=== PATIENT | male | born 1990 | race Caucasian/White ===

== ENCOUNTER 2023-04-13 19:54 | Emergency (ER) | payer MEDICAID, SELFPAY ==
[2023-04-13] VITALS (10 sets, daily range): BP systolic 114–162; BP diastolic 66–94; PULSE 92–98; RESP 6–24; TEMP 36.9; O2SAT 96–99; BMI 42.0
--- NOTE | 2023-04-13 20:03 | ED.CHESTPAI1 ---
Documented by User: MEL Doty 04/13/23 21:24 HPI - Chest Pain General Chief Complaint: Chest Pain Stated Complaint: CHEST PAIN Time Seen by Provider: 04/13/23 19:59 History of Present Illness HPI narrative: patient is a 32-year-old male presents to the emergency department for the evaluation of chest pain over the last 40-45 minutes. He states he was at a family cookout when he developed pain in the anterior chest with radiation to the left anterior chest. He reports minimal shortness of breath but has had no recent illness, fevers, cough, congestion. He denies abdominal pain, nausea, vomiting, diarrhea. He denies peripheral edema. He smokes proximally fifteen cigarettes daily. He states he was concerned because he has a family history of coronary artery disease. He has no known heart or lung problems. He takes no medications daily. Related Data Allergies Allergy/AdvReac Type Severity Reaction Status Date / Time No Known Drug Allergies Allergy Verified 04/13/23 20:07 Review of Systems ROS Constitutional Denies: fever or chills Ears, nose, mouth, and throat Denies: throat pain or neck pain Cardiovascular Reports: chest pain; Denies: palpitations Respiratory Reports: shortness of breath; Denies: cough Gastrointestinal Denies: nausea or vomiting Musculoskeletal Denies: back pain Integumentary/Breast Denies: rash PFSH PFSH Social History Smoking status: Current every day smoker Exam Narrative Exam Narrative: Gen.: Awake, alert, in no distress Head: Normocephalic, atraumatic ENT: Moist mucous membranes Respiratory: No respiratory distress, lungs clear bilaterally Cardio: Regular rate and rhythm Gastrointestinal: Abdomen is soft, nondistended and nontender to palpation Extremities: Moves extremities equally, no peripheral edema Psych: Normal mood and affect Neuro: No focal neuro deficit Skin: Warm, dry, intact Constitutional Vital Signs - 24 hr 04/13/23 19:59 04/13/23 20:11 04/13/23 20:00 Temperature 98.5 F Pulse Rate Pulse Rate [Monitor] 95 H Respiratory Rate 18 Blood Pressure Blood Pressure [Left Arm] 162/94 H Pulse Oximetry 97 97 99 Oxygen Delivery Method Room Air Room Air 04/13/23 20:03 04/13/23 20:04 04/13/23 20:16 Temperature Pulse Rate 98 H 93 H 93 H Pulse Rate [Monitor] Respiratory Rate 6 L 15 17 Blood Pressure 162/94 H 148/90 H Blood Pressure [Left Arm] Pulse Oximetry 96 97 97 Oxygen Delivery Method 04/13/23 20:16 04/13/23 20:41 04/13/23 20:42 Temperature Pulse Rate 92 H 92 H Pulse Rate [Monitor] Respiratory Rate 11 L 15 Blood Pressure 148/90 H Blood Pressure [Left Arm] Pulse Oximetry Oxygen Delivery Method 04/13/23 20:47 04/13/23 21:02 04/13/23 21:02 Temperature Pulse Rate 94 H 96 H 92 H Pulse Rate [Monitor] Respiratory Rate 17 24 19 Blood Pressure 130/80 H 114/66 114/66 Blood Pressure [Left Arm] Pulse Oximetry Oxygen Delivery Method Course Vital Signs Vital signs: Vital Signs Temperature 98.5 F 04/13/23 19:59 Pulse Rate 95 H 04/13/23 19:59 Respiratory Rate 18 04/13/23 19:59 Blood Pressure 162/94 H 04/13/23 19:59 Pulse Oximetry 97 04/13/23 19:59 Oxygen Delivery Method Room Air 04/13/23 19:59 Temperature 98.5 F 04/13/23 19:59 Pulse Rate 92 H 04/13/23 21:02 Respiratory Rate 19 04/13/23 21:02 Blood Pressure 114/66 04/13/23 21:02 Pulse Oximetry 97 04/13/23 20:16 Oxygen Delivery Method Room Air 04/13/23 20:11 MDM - Chest Pain MDM Narrative Medical decision making narrative: patient with a heart score of two for risk factors of obesity, smoking, family history. His vital signs are within normal limits in the Emergency Room, EKG is unremarkable. Patient rested comfortably throughout his stay in the Emergency Room, he was given aspirin but did not require any additional medications for pain or nausea. Chest x-ray, d-dimer, troponin within normal limits and the patient is discharged home to follow-up with PCP. Return to the emergency department if symptoms change or worsen. Medical Records Data Attestation: I reviewed the patient's medical records. Lab Data Attestation: I reviewed the patient's lab results. Labs: Lab Results 04/13/23 Range/Units 20:05 WBC 7.9 (4.0-11.0) 10^3/uL RBC 5.50 (4.70-6.10) 10^6/uL Hgb 14.9 (14.0-18.0) g/dL Hct 46.0 (42.0-54.0) % MCV 83.6 (80.0-94.0) fL MCH 27.1 (25.9-34.0) pg MCHC 32.4 (29.9-35.2) g/dL RDW 13.1 (11.0-15.0) % Plt Count 277 (150-450) 10^3/uL MPV 10.3 (9.5-13.5) fL Neut % (Auto) 73.8 (43.0-75.0) % Lymph % (Auto) 15.9 L (20.5-60.0) % [place] % (Auto) 7.5 (1.7-12.0) % Eos % (Auto) 1.7 (0.9-7.0) % Baso % (Auto) 0.3 (0.2-2.0) % Neut # (Auto) 5.8 (1.4-6.5) 10^3/uL Lymph # (Auto) 1.3 (1.2-3.8) 10^3/uL [place] # (Auto) 0.6 (0.3-0.8) 10^3/uL Eos # (Auto) 0.1 (0.0-0.7) 10^3/uL Baso # (Auto) 0.0 (0.0-0.1) 10^3/uL Abs Immat Gran (auto) 0.06 H (0.00-0.03) 10^3/uL Imm/Tot Granulo (auto) 0.8 H (0.0-0.5) % PT 10.2 (9.0-11.6) sec INR 0.96 APTT 28.2 (22.3-36.2) sec D-Dimer <0.19 (<=0.59) mg/L FEU Sodium 139 (136-145) mmol/L Potassium 4.3 (3.5-5.1) mmol/L Chloride 104 (98-107) mmol/L Carbon Dioxide 25.3 (21.0-32.0) mmol/L Anion Gap 14.0 BUN 14.0 (7.0-18.0) mg/dL Creatinine 0.96 (0.70-1.30) mg/dL Est GFR ( Amer) >60 (>=60) Est GFR (Non-Af Amer) >60 (>=60) BUN/Creatinine Ratio 14.6 Glucose 104 (74-106) mg/dL Calcium 9.2 (8.5-10.1) mg/dL Total Bilirubin 0.3 (0.2-1.0) mg/dL AST 20 (15-37) U/L ALT 54 (16-63) U/L Alkaline Phosphatase 74 (46-116) U/L Troponin I High Sens <4.0 L (4.0-76.1) pg/mL Total Protein 8.0 (6.4-8.2) g/dL Albumin 4.0 (3.4-5.0) g/dL Globulin 4.0 g/dL Albumin/Globulin Ratio 1.0 Imaging Data Chest x-ray: Attestation: I have reviewed the pertinent imaging results. Radiologist's impression: Procedure: XR chest 1V EXAMINATION: XR chest 1V HISTORY: Chest pain COMPARISON: None. TECHNIQUE: Portable chest FINDINGS: The lung parenchyma is free of consolidation or infiltrate. No pneumothorax or pleural effusion. The cardiac, mediastinal and hilar contours are normal. The visualized osseous structures exhibit no gross abnormality. IMPRESSION: No acute cardiopulmonary abnormality. Electronically authenticated by: ARANZA MONROE Date: 04/13/2023 21:12 ECG Data Attestation: I personally reviewed and interpreted this ECG as follows: (normal sinus rhythm at a rate of ninety-three, no acute ST elevation or ectopy. EKG reviewed by attending physician) Heart Score History: Slightly/Non-Suspicious ECG: Normal Age: <45 years Risk Factors: >3 Risk Factors/ HX of CAD:2 Troponin: <Normal Limit Total Heart Score Recommendations & Risks:: 2 Discharge Plan Discharge Chief Complaint: Chest Pain Clinical Impression: Chest pain Patient Disposition: Home, Self-Care Time of Disposition Decision: 21:21 Condition: Good Instructions: Chest Pain (ED) Stand Alone Forms: Portal Instructions Referrals: Juliette Reaves MD [Primary Care Provider] - 1 week Discharge Date/Time: 04/13/23 21:31 Documented by User: Ko Pedro MD 04/14/23 06:48 HPI - Chest Pain General Chief Complaint: Chest Pain Stated Complaint: CHEST PAIN Time Seen by Provider: 04/13/23 19:59 Related Data Allergies Allergy/AdvReac Type Severity Reaction Status Date / Time No Known Drug Allergies Allergy Verified 04/13/23 20:07 PFSH PFSH Social History Smoking status: Current every day smoker Exam Constitutional Vital Signs - 24 hr 04/13/23 19:59 04/13/23 20:11 04/13/23 20:00 Temperature 98.5 F Pulse Rate Pulse Rate [Monitor] 95 H Respiratory Rate 18 Blood Pressure Blood Pressure [Left Arm] 162/94 H Pulse Oximetry 97 97 99 Oxygen Delivery Method Room Air Room Air 04/13/23 20:03 04/13/23 20:04 04/13/23 20:16 Temperature Pulse Rate 98 H 93 H 93 H Pulse Rate [Monitor] Respiratory Rate 6 L 15 17 Blood Pressure 162/94 H 148/90 H Blood Pressure [Left Arm] Pulse Oximetry 96 97 97 Oxygen Delivery Method 04/13/23 20:16 04/13/23 20:41 04/13/23 20:42 Temperature Pulse Rate 92 H 92 H Pulse Rate [Monitor] Respiratory Rate 11 L 15 Blood Pressure 148/90 H Blood Pressure [Left Arm] Pulse Oximetry Oxygen Delivery Method 04/13/23 20:47 04/13/23 21:02 04/13/23 21:02 Temperature Pulse Rate 94 H 96 H 92 H Pulse Rate [Monitor] Respiratory Rate 17 24 19 Blood Pressure 130/80 H 114/66 114/66 Blood Pressure [Left Arm] Pulse Oximetry Oxygen Delivery Method Course Vital Signs Vital signs: Vital Signs Temperature 98.5 F 04/13/23 19:59 Pulse Rate 95 H 04/13/23 19:59 Respiratory Rate 18 04/13/23 19:59 Blood Pressure 162/94 H 04/13/23 19:59 Pulse Oximetry 97 04/13/23 19:59 Oxygen Delivery Method Room Air 04/13/23 19:59 Temperature 98.5 F 04/13/23 19:59 Pulse Rate 92 H 04/13/23 21:02 Respiratory Rate 19 04/13/23 21:02 Blood Pressure 114/66 04/13/23 21:02 Pulse Oximetry 97 04/13/23 20:16 Oxygen Delivery Method Room Air 04/13/23 20:11 MDM - Chest Pain Lab Data Labs: Lab Results 04/13/23 Range/Units 20:05 WBC 7.9 (4.0-11.0) 10^3/uL RBC 5.50 (4.70-6.10) 10^6/uL Hgb 14.9 (14.0-18.0) g/dL Hct 46.0 (42.0-54.0) % MCV 83.6 (80.0-94.0) fL MCH 27.1 (25.9-34.0) pg MCHC 32.4 (29.9-35.2) g/dL RDW 13.1 (11.0-15.0) % Plt Count 277 (150-450) 10^3/uL MPV 10.3 (9.5-13.5) fL Neut % (Auto) 73.8 (43.0-75.0) % Lymph % (Auto) 15.9 L (20.5-60.0) % [place] % (Auto) 7.5 (1.7-12.0) % Eos % (Auto) 1.7 (0.9-7.0) % Baso % (Auto) 0.3 (0.2-2.0) % Neut # (Auto) 5.8 (1.4-6.5) 10^3/uL Lymph # (Auto) 1.3 (1.2-3.8) 10^3/uL [place] # (Auto) 0.6 (0.3-0.8) 10^3/uL Eos # (Auto) 0.1 (0.0-0.7) 10^3/uL Baso # (Auto) 0.0 (0.0-0.1) 10^3/uL Abs Immat Gran (auto) 0.06 H (0.00-0.03) 10^3/uL Imm/Tot Granulo (auto) 0.8 H (0.0-0.5) % PT 10.2 (9.0-11.6) sec INR 0.96 APTT 28.2 (22.3-36.2) sec D-Dimer <0.19 (<=0.59) mg/L FEU Sodium 139 (136-145) mmol/L Potassium 4.3 (3.5-5.1) mmol/L Chloride 104 (98-107) mmol/L Carbon Dioxide 25.3 (21.0-32.0) mmol/L Anion Gap 14.0 BUN 14.0 (7.0-18.0) mg/dL Creatinine 0.96 (0.70-1.30) mg/dL Est GFR ( Amer) >60 (>=60) Est GFR (Non-Af Amer) >60 (>=60) BUN/Creatinine Ratio 14.6 Glucose 104 (74-106) mg/dL Calcium 9.2 (8.5-10.1) mg/dL Total Bilirubin 0.3 (0.2-1.0) mg/dL AST 20 (15-37) U/L ALT 54 (16-63) U/L Alkaline Phosphatase 74 (46-116) U/L Troponin I High Sens <4.0 L (4.0-76.1) pg/mL Total Protein 8.0 (6.4-8.2) g/dL Albumin 4.0 (3.4-5.0) g/dL Globulin 4.0 g/dL Albumin/Globulin Ratio 1.0 Heart Score Total Heart Score Recommendations & Risks:: 2 Discharge Plan Discharge Chief Complaint: Chest Pain Clinical Impression: Chest pain Patient Disposition: Home, Self-Care Time of Disposition Decision: 21:21 Condition: Good Instructions: Chest Pain (ED) Stand Alone Forms: Portal Instructions Referrals: Juliette Reaves MD [Primary Care Provider] - 1 week Discharge Date/Time: 04/13/23 21:31
--- NOTE | 2023-04-13 20:04 | ECG_ITS ---
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
[2023-04-13 20:12] LABS: Basophils Percent Auto 0.3 % (0.2-2.0); Eosinophils Absolute Auto 0.1 10^3/uL (0.0-0.7); Eosinophils Percent Auto 1.7 % (0.9-7.0); Hemoglobin 14.9 g/dL (14.0-18.0); Immature Granulocytes Abs Auto 0.06 10^3/uL (0.00-0.03); Immature Granulocytes Pct Auto 0.8 % (0.0-0.5); Lymphocytes Absolute Auto 1.3 10^3/uL (1.2-3.8); Lymphocytes Percent Auto 15.9 % (20.5-60.0); Mean Corpuscular HGB Conc 32.4 g/dL (29.9-35.2); Mean Corpuscular Hemoglobin 27.1 pg (25.9-34.0); Mean Corpuscular Volume 83.6 fL (80.0-94.0); Mean Platelet Volume 10.3 fL (9.5-13.5); Monocytes Absolute Auto 0.6 10^3/uL (0.3-0.8); Monocytes Percent Auto 7.5 % (1.7-12.0); Neutrophils Absolute Auto 5.8 10^3/uL (1.4-6.5); Neutrophils Percent Auto 73.8 % (43.0-75.0); Platelet Count 277 10^3/uL (150-450); Red Cell Distribution Width 13.1 % (11.0-15.0); White Blood Count 7.9 10^3/uL (4.0-11.0)
[2023-04-13 20:28] LABS: INR 0.96; Partial Thromboplastin Time 28.2 sec (22.3-36.2); Prothrombin Time 10.2 sec (9.0-11.6)
[2023-04-13 20:30] LABS: Alanine Aminotransferase 54 U/L (16-63); Alkaline Phosphatase 74 U/L (46-116); Aspartate Amino Transferase 20 U/L (15-37); BUN Creatinine Ratio 14.6; Bilirubin Total 0.3 mg/dL (0.2-1.0); Calcium 9.2 mg/dL (8.5-10.1); Carbon Dioxide 25.3 mmol/L (21.0-32.0); Chloride 104 mmol/L (98-107); Estimated GFR (African America >60 (>=60); Estimated GFR (Non-African Ame >60 (>=60); Glucose 104 mg/dL (74-106); Potassium 4.3 mmol/L (3.5-5.1); Sodium 139 mmol/L (136-145); Troponin I High Sensitivity <4.0 pg/mL (4.0-76.1)
[2023-04-13] MEDS: ASPIRIN 81 MG TAB.CHEW PO (20:42)
[2023-04-13 20:47] LABS: D Dimer <0.19 mg/L FEU (<=0.59)
--- NOTE | 2023-04-13 20:48 | XR_ITS ---
[place] [id number] Patient Name: SORAIDA RAPHAEL MRN: [id number] date: 1990 Sex: M Assigned Patient Location: ER Current Patient Location: ER Accession/Order Number: [id number] Exam Date: 04/13/2023 20:50 Report Date: 04/13/2023 21:12 At the request of: BECKY RICHARDS Procedure: XR chest 1V EXAMINATION: XR chest 1V HISTORY: Chest pain COMPARISON: None. TECHNIQUE: Portable chest FINDINGS: The lung parenchyma is free of consolidation or infiltrate. No pneumothorax or pleural effusion. The cardiac, mediastinal and hilar contours are normal. The visualized osseous structures exhibit no gross abnormality. IMPRESSION: No acute cardiopulmonary abnormality. Electronically authenticated by: ARANZA MONROE Date: 04/13/2023 21:12
== END 2023-04-13 21:31 | disposition home or self-care (01) ==
PROVIDERS: Physician Assistant; Emergency Provider Internal Medicine; PCP Family Medicine
DX: R07.9 Chest pain, unspecified (principal); F17.210 Nicotine dependence, cigarettes, uncomplicated; Z82.49 Family history of ischemic heart disease and other diseases of the circulatory system
CPT/HCPCS: 36415; 71045; 80053; 84484; 85025; 85378; 85610; 85730; 93005; 99285

== ENCOUNTER 2023-05-13 19:28 | Emergency (ER) | payer MEDICAID, SELFPAY ==
[2023-05-13] VITALS (20 sets, daily range): BP systolic 106–132; BP diastolic 69–93; PULSE 72–80; RESP 13–20; TEMP 36.6; O2SAT 96–99; BMI 40.7
--- NOTE | 2023-05-13 20:05 | ECG_ITS ---
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
--- NOTE | 2023-05-13 20:19 | XR_ITS ---
The [address] [address] Patient Name: SORAIDA RAPHAEL MRN: [id number] date: 1990 Sex: M Assigned Patient Location: ER Current Patient Location: ER Accession/Order Number: [id number] Exam Date: 05/13/2023 20:52 Report Date: 05/13/2023 21:14 At the request of: BECKY RICHARDS Procedure: XR chest 1V EXAM: XR chest 1V HISTORY: Dizziness COMPARISON: 04/13/2023 TECHNIQUE: AP portable study FINDINGS: The cardiovascular silhouette is normal. Lung gottlieb are well-expanded and clear. Pleural spaces are clear. The bony structures are unremarkable. XR/XR chest 1V IMPRESSION: No evidence for acute cardiopulmonary disease. Electronically authenticated by: Katy TRAN Date: 05/13/2023 21:14
--- NOTE | 2023-05-13 20:19 | CT_ITS ---
The [address] [address] Patient Name: SORAIDA RAPHAEL MRN: [id number] date: 1990 Sex: M Assigned Patient Location: ER Current Patient Location: [facility] Accession/Order Number: [id number] Exam Date: 05/13/2023 20:52 Report Date: 05/13/2023 21:24 At the request of: BECKY RICHARDS Procedure: CT head/brain wo con CT head/brain wo con, 05/13/2023 8:52 PM EDT INDICATION: Dizziness COMPARISON: None. TECHNIQUE: Axial CT images of the brain from skull base to vertex, including portions of the face and sinuses, were obtained without contrast. Multiplanar reformatted images were generated and reviewed as needed. Dose reduction techniques were achieved by using automated exposure control and/or adjustment of mA and/or kV according to patient size and/or use of iterative reconstruction technique. FINDINGS: CEREBRUM: No edema, hemorrhage, mass, acute infarction, or inappropriate atrophy. CEREBELLUM: No edema, hemorrhage, mass, acute infarction, or inappropriate atrophy. BRAINSTEM: No acute infarct, hemorrhage or gross structural abnormality. CSF SPACES: Ventricles, cisterns, and sulci are appropriate for age. No hydrocephalus, subarachnoid hemorrhage, or mass. SKULL: No mass or other significant visible lesion. SINUSES: Limited views demonstrate no significant mucosal thickening or fluid. ORBITS: Limited views are unremarkable. OTHER: None. CT/CT head/brain wo con IMPRESSION: No acute intracranial abnormality is identified. Electronically authenticated by: Katy TRAN Date: 05/13/2023 21:24
[2023-05-13 20:33] LABS: Basophils Percent Auto 0.3 % (0.2-2.0); Eosinophils Absolute Auto 0.2 10^3/uL (0.0-0.7); Eosinophils Percent Auto 2.7 % (0.9-7.0); Hematocrit 46.6 % (42.0-54.0); Hemoglobin 14.8 g/dL (14.0-18.0); Immature Granulocytes Abs Auto 0.08 10^3/uL (0.00-0.03); Immature Granulocytes Pct Auto 1.4 % (0.0-0.5); Lymphocytes Absolute Auto 1.2 10^3/uL (1.2-3.8); Lymphocytes Percent Auto 20.1 % (20.5-60.0); Mean Corpuscular HGB Conc 31.8 g/dL (29.9-35.2); Mean Corpuscular Hemoglobin 26.5 pg (25.9-34.0); Mean Corpuscular Volume 83.5 fL (80.0-94.0); Mean Platelet Volume 10.5 fL (9.5-13.5); Monocytes Absolute Auto 0.4 10^3/uL (0.3-0.8); Monocytes Percent Auto 7.2 % (1.7-12.0); Neutrophils Percent Auto 68.3 % (43.0-75.0); Platelet Count 256 10^3/uL (150-450); Red Blood Count 5.58 10^6/uL (4.70-6.10); Red Cell Distribution Width 12.8 % (11.0-15.0); White Blood Count 5.9 10^3/uL (4.0-11.0)
[2023-05-13] MEDS: MECLIZINE HCL 12.5 MG TABLET 25 MG PO (20:39)
[2023-05-13] MEDS: 0.9 % SODIUM CHLORIDE 1,000 ML 1000 ML IV ×2 (20:39→22:59)
[2023-05-13 20:46] LABS: INR 0.98; Partial Thromboplastin Time 29.1 sec (22.3-36.2); Prothrombin Time 10.4 sec (9.0-11.6)
[2023-05-13] MEDS: ONDANSETRON PF 4 MG/2 ML VIAL IV (20:46)
[2023-05-13 20:50] LABS: Alanine Aminotransferase 52 U/L (16-63); Albumin Globulin Ratio 1.1; Alkaline Phosphatase 70 U/L (46-116); Anion Gap 11.7; Aspartate Amino Transferase 22 U/L (15-37); BUN Creatinine Ratio 13.8; Bilirubin Total 0.5 mg/dL (0.2-1.0); Calcium 8.9 mg/dL (8.5-10.1); Carbon Dioxide 27.6 mmol/L (21.0-32.0); Chloride 103 mmol/L (98-107); Estimated GFR (African America >60 (>=60); Estimated GFR (Non-African Ame >60 (>=60); Globulin 3.7 g/dL; Glucose 126 mg/dL (74-106); Potassium 4.3 mmol/L (3.5-5.1); Sodium 138 mmol/L (136-145); Total Protein 7.7 g/dL (6.4-8.2)
--- NOTE | 2023-05-13 21:16 | ED_ITS ---
Documented by User: MEL Doty 05/13/23 22:51 HPI - Dizziness General Chief Complaint: Dizziness Stated Complaint: DIZZINESS, HYPERTENSION Time Seen by Provider: 05/13/23 20:13 Source: patient Mode of arrival: walk-in History of Present Illness HPI Narrative: patient is a 32-year-old male who presents to the emergency department for the evaluation of dizziness that began this afternoon. He states he stood up and felt very unbalanced. He denies any sensation of spinning. No syncope. He denies headache, visual changes, peripheral paresthesias. No speech changes, chest pain, shortness of breath. He is regular smoker. No medications taken prior to arrival. He denies any fevers or upper respiratory symptoms. Related Data Previous Rx's Medication Instructions Recorded diazepam 5 mg tablet (Valium) 5 mg PO TID PRN dizziness #10 tabs 05/13/23 promethazine 25 mg tablet 25 mg PO Q6H PRN nausea and 05/13/23 vomiting #12 tabs Allergies Allergy/AdvReac Type Severity Reaction Status Date / Time No Known Drug Allergies Allergy Verified 04/13/23 20:07 Review of Systems ROS Constitutional Denies: fever or chills Eyes Denies: change in vision Ears, nose, mouth, and throat Denies: throat pain Cardiovascular Denies: chest pain Respiratory Denies: shortness of breath or cough Gastrointestinal Denies: nausea or vomiting Musculoskeletal Denies: back pain or neck pain Integumentary/Breast Denies: rash Neurological Denies: headache PFSH PFSH Social History Smoking status: Current every day smoker Exam Narrative Exam Narrative: Gen.: Awake, alert, in no distress Head: Normocephalic, atraumatic ENT: Moist mucous membranes Respiratory: No respiratory distress, lungs clear bilaterally Cardio: Regular rate and rhythm Extremities: Moves extremities equally, no injuries noted Psych: Normal mood and affect Neuro: No focal neuro deficit Skin: Warm, dry, intact Constitutional Vital Signs, click to edit/add: Last Vital Signs Temp 97.8 F 05/13/23 19:55 Pulse 72 05/13/23 20:40 Resp 14 05/13/23 20:40 BP 118/84 05/13/23 23:06 Pulse Ox 98 05/13/23 22:07 O2 Del Method Room Air 05/13/23 19:55 Course Vital Signs Vital signs: Vital Signs Temperature 97.8 F 05/13/23 19:55 Pulse Rate 79 05/13/23 19:55 Respiratory Rate 20 05/13/23 19:55 Blood Pressure 132/93 H 05/13/23 19:55 Pulse Oximetry 98 05/13/23 19:55 Oxygen Delivery Method Room Air 05/13/23 19:55 Temperature 97.8 F 05/13/23 19:55 Pulse Rate 72 05/13/23 20:40 Respiratory Rate 14 05/13/23 20:40 Blood Pressure 118/84 05/13/23 23:06 Pulse Oximetry 98 05/13/23 22:07 Oxygen Delivery Method Room Air 05/13/23 19:55 MDM - Dizziness MDM Narrative Medical decision making narrative: CT of the brain, chest x-ray, lab studies are unremarkable. Patient was treated with IV fluids, Antivert and Zofran. He reports still feeling dizzy. He was given IV Valium with no significant improvement and was given additional dose of IV Valium and a 2nd liter of fluid. 2250: patient was remedicated, case turned over to attending physician for reevaluation and disposition. Anticipate discharge home. Medical Records Attestation: I reviewed the patient's medical records. Lab Data Attestation: I reviewed the patient's lab results. Labs: Lab Results 05/13/23 05/13/23 Range/Units 20:15 20:43 WBC 5.9 (4.0-11.0) 10^3/uL RBC 5.58 (4.70-6.10) 10^6/uL Hgb 14.8 (14.0-18.0) g/dL Hct 46.6 (42.0-54.0) % MCV 83.5 (80.0-94.0) fL MCH 26.5 (25.9-34.0) pg MCHC 31.8 (29.9-35.2) g/dL RDW 12.8 (11.0-15.0) % Plt Count 256 (150-450) 10^3/uL MPV 10.5 (9.5-13.5) fL Neut % (Auto) 68.3 (43.0-75.0) % Lymph % (Auto) 20.1 L (20.5-60.0) % [place] % (Auto) 7.2 (1.7-12.0) % Eos % (Auto) 2.7 (0.9-7.0) % Baso % (Auto) 0.3 (0.2-2.0) % Neut # (Auto) 4.0 (1.4-6.5) 10^3/uL Lymph # (Auto) 1.2 (1.2-3.8) 10^3/uL [place] # (Auto) 0.4 (0.3-0.8) 10^3/uL Eos # (Auto) 0.2 (0.0-0.7) 10^3/uL Baso # (Auto) 0.0 (0.0-0.1) 10^3/uL Abs Immat Gran (auto) 0.08 H (0.00-0.03) 10^3/uL Imm/Tot Granulo (auto) 1.4 H (0.0-0.5) % PT 10.4 (9.0-11.6) sec INR 0.98 APTT 29.1 (22.3-36.2) sec Sodium 138 (136-145) mmol/L Potassium 4.3 (3.5-5.1) mmol/L Chloride 103 (98-107) mmol/L Carbon Dioxide 27.6 (21.0-32.0) mmol/L Anion Gap 11.7 BUN 15.0 (7.0-18.0) mg/dL Creatinine 1.09 (0.70-1.30) mg/dL Est GFR ( Amer) >60 (>=60) Est GFR (Non-Af Amer) >60 (>=60) BUN/Creatinine Ratio 13.8 Glucose 126 H (74-106) mg/dL Calcium 8.9 (8.5-10.1) mg/dL Total Bilirubin 0.5 (0.2-1.0) mg/dL AST 22 (15-37) U/L ALT 52 (16-63) U/L Alkaline Phosphatase 70 (46-116) U/L Troponin I High Sens 5.0 (4.0-76.1) pg/mL Total Protein 7.7 (6.4-8.2) g/dL Albumin 4.0 (3.4-5.0) g/dL Globulin 3.7 g/dL Albumin/Globulin Ratio 1.1 Urine Color Yellow (YELLOW) Urine Clarity Clear (CLEAR) Urine pH 6.0 (5.0-9.0) Ur Specific Forgan 1.020 (1.005-1.025) Urine Protein Trace (NEG/TRACE) mg/dL Urine Glucose (UA) Negative (NEGATIVE) mg/dL Urine Ketones Trace A (NEGATIVE) mg/dL Urine Occult Blood Negative (NEGATIVE) Urine Nitrite Negative (NEGATIVE) Urine Bilirubin Negative (NEGATIVE) Urine Urobilinogen 1.0 (0.2-1.0) EU/dL Ur Leukocyte Esterase Negative (NEGATIVE) Imaging Data CT scan - head: Attestation: I have reviewed the pertinent imaging results. Radiologist's impression: Procedure: CT head/brain wo con CT head/brain wo con, 05/13/2023 8:52 PM EDT INDICATION: Dizziness COMPARISON: None. TECHNIQUE: Axial CT images of the brain from skull base to vertex, including portions of the face and sinuses, were obtained without contrast. Multiplanar reformatted images were generated and reviewed as needed. Dose reduction techniques were achieved by using automated exposure control and/or adjustment of mA and/or kV according to patient size and/or use of iterative reconstruction technique. FINDINGS: CEREBRUM: No edema, hemorrhage, mass, acute infarction, or inappropriate atrophy. CEREBELLUM: No edema, hemorrhage, mass, acute infarction, or inappropriate atrophy. BRAINSTEM: No acute infarct, hemorrhage or gross structural abnormality. CSF SPACES: Ventricles, cisterns, and sulci are appropriate for age. No hydrocephalus, subarachnoid hemorrhage, or mass. SKULL: No mass or other significant visible lesion. SINUSES: Limited views demonstrate no significant mucosal thickening or fluid. ORBITS: Limited views are unremarkable. OTHER: None. IMPRESSION: No acute intracranial abnormality is identified. Electronically authenticated by: Katy TRAN Date: 05/13/2023 21:24 Chest x-ray: Attestation: I have reviewed the pertinent imaging results. Radiologist's impression: Procedure: XR chest 1V EXAM: XR chest 1V HISTORY: Dizziness COMPARISON: 04/13/2023 TECHNIQUE: AP portable study FINDINGS: The cardiovascular silhouette is normal. Lung gottlieb are well-expanded and clear. Pleural spaces are clear. The bony structures are unremarkable. IMPRESSION: No evidence for acute cardiopulmonary disease. Electronically authenticated by: Katy TRAN Date: 05/13/2023 21:14 ECG Data Attestation: I personally reviewed and interpreted this ECG as follows: (normal sinus rhythm at a rate of seventy-four, no acute ST elevation or ectopy. EKG reviewed by attending physician) Discharge Plan Discharge Chief Complaint: Dizziness Clinical Impression: Dizziness Patient Disposition: Home, Self-Care Time of Disposition Decision: 22:44 Condition: Good Mode of Transportation: Private Vehicle Prescriptions / Home Meds: New diazepam [Valium] 5 mg tablet 5 mg PO TID PRN (Reason: dizziness) Qty: 10 0RF Rx Instructions: DX: R42 promethazine 25 mg tablet 25 mg PO Q6H PRN (Reason: nausea and vomiting) Qty: 12 0RF Instructions: Dizziness (ED) Stand Alone Forms: Portal Instructions Referrals: Juliette Reaves MD [Primary Care Provider] - 1 week Discharge Date/Time: 05/14/23 00:37 Documented by User: Steph Lopez MD 05/14/23 03:16 HPI - Dizziness General Chief Complaint: Dizziness Stated Complaint: DIZZINESS, HYPERTENSION Time Seen by Provider: 05/13/23 20:13 Related Data Previous Rx's Medication Instructions Recorded diazepam 5 mg tablet (Valium) 5 mg PO TID PRN dizziness #10 tabs 05/13/23 promethazine 25 mg tablet 25 mg PO Q6H PRN nausea and 05/13/23 vomiting #12 tabs Allergies Allergy/AdvReac Type Severity Reaction Status Date / Time No Known Drug Allergies Allergy Verified 04/13/23 20:07 PFSH PFSH Social History Smoking status: Current every day smoker Exam Constitutional Vital Signs, click to edit/add: Last Vital Signs Temp 97.8 F 05/13/23 19:55 Pulse 72 05/13/23 20:40 Resp 14 05/13/23 20:40 BP 118/84 08/01/23 23:06 Pulse Ox 98 05/13/23 22:07 O2 Del Method Room Air 05/13/23 19:55 Course Vital Signs Vital signs: Vital Signs Temperature 97.8 F 05/13/23 19:55 Pulse Rate 79 05/13/23 19:55 Respiratory Rate 20 05/13/23 19:55 Blood Pressure 132/93 H 05/13/23 19:55 Pulse Oximetry 98 05/13/23 19:55 Oxygen Delivery Method Room Air 05/13/23 19:55 Temperature 97.8 F 05/13/23 19:55 Pulse Rate 72 05/13/23 20:40 Respiratory Rate 14 05/13/23 20:40 Blood Pressure 118/84 05/13/23 23:06 Pulse Oximetry 98 05/13/23 22:07 Oxygen Delivery Method Room Air 05/13/23 19:55 MDM - Dizziness MDM Narrative Medical decision making narrative: CT of the brain, chest x-ray, lab studies are unremarkable. Patient was treated with IV fluids, Antivert and Zofran. He reports still feeling dizzy. He was given IV Valium with no significant improvement and was given additional dose of IV Valium and a 2nd liter of fluid. 2250: patient was remedicated, case turned over to attending physician for reevaluation and disposition. Anticipate discharge home. Patient reevaluated. His symptoms improved after Valium. The patient is requesting discharge. 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 Patient was able to ambulate without any ataxia. Attending physician attestation I have seen and evaluated this patient. I have reviewed the mid-level provider?s documentation medical decision making and treatment plan. I agree with the mid- level provider?s assessment, and plan. Lab Data Labs: Lab Results 05/13/23 05/13/23 Range/Units 20:15 20:43 WBC 5.9 (4.0-11.0) 10^3/uL RBC 5.58 (4.70-6.10) 10^6/uL Hgb 14.8 (14.0-18.0) g/dL Hct 46.6 (42.0-54.0) % MCV 83.5 (80.0-94.0) fL MCH 26.5 (25.9-34.0) pg MCHC 31.8 (29.9-35.2) g/dL RDW 12.8 (11.0-15.0) % Plt Count 256 (150-450) 10^3/uL MPV 10.5 (9.5-13.5) fL Neut % (Auto) 68.3 (43.0-75.0) % Lymph % (Auto) 20.1 L (20.5-60.0) % [place] % (Auto) 7.2 (1.7-12.0) % Eos % (Auto) 2.7 (0.9-7.0) % Baso % (Auto) 0.3 (0.2-2.0) % Neut # (Auto) 4.0 (1.4-6.5) 10^3/uL Lymph # (Auto) 1.2 (1.2-3.8) 10^3/uL [place] # (Auto) 0.4 (0.3-0.8) 10^3/uL Eos # (Auto) 0.2 (0.0-0.7) 10^3/uL Baso # (Auto) 0.0 (0.0-0.1) 10^3/uL Abs Immat Gran (auto) 0.08 H (0.00-0.03) 10^3/uL Imm/Tot Granulo (auto) 1.4 H (0.0-0.5) % PT 10.4 (9.0-11.6) sec INR 0.98 APTT 29.1 (22.3-36.2) sec Sodium 138 (136-145) mmol/L Potassium 4.3 (3.5-5.1) mmol/L Chloride 103 (98-107) mmol/L Carbon Dioxide 27.6 (21.0-32.0) mmol/L Anion Gap 11.7 BUN 15.0 (7.0-18.0) mg/dL Creatinine 1.09 (0.70-1.30) mg/dL Est GFR ( Amer) >60 (>=60) Est GFR (Non-Af Amer) >60 (>=60) BUN/Creatinine Ratio 13.8 Glucose 126 H (74-106) mg/dL Calcium 8.9 (8.5-10.1) mg/dL Total Bilirubin 0.5 (0.2-1.0) mg/dL AST 22 (15-37) U/L ALT 52 (16-63) U/L Alkaline Phosphatase 70 (46-116) U/L Troponin I High Sens 5.0 (4.0-76.1) pg/mL Total Protein 7.7 (6.4-8.2) g/dL Albumin 4.0 (3.4-5.0) g/dL Globulin 3.7 g/dL Albumin/Globulin Ratio 1.1 Urine Color Yellow (YELLOW) Urine Clarity Clear (CLEAR) Urine pH 6.0 (5.0-9.0) Ur Specific [place] 1.020 (1.005-1.025) Urine Protein Trace (NEG/TRACE) mg/dL Urine Glucose (UA) Negative (NEGATIVE) mg/dL Urine Ketones Trace A (NEGATIVE) mg/dL Urine Occult Blood Negative (NEGATIVE) Urine Nitrite Negative (NEGATIVE) Urine Bilirubin Negative (NEGATIVE) Urine Urobilinogen 1.0 (0.2-1.0) EU/dL Ur Leukocyte Esterase Negative (NEGATIVE) Discharge Plan Discharge Chief Complaint: Dizziness Clinical Impression: Dizziness Patient Disposition: Home, Self-Care Time of Disposition Decision: 22:44 Condition: Good Mode of Transportation: Private Vehicle Prescriptions / Home Meds: New diazepam [Valium] 5 mg tablet 5 mg PO TID PRN (Reason: dizziness) Qty: 10 0RF Rx Instructions: DX: R42 promethazine 25 mg tablet 25 mg PO Q6H PRN (Reason: nausea and vomiting) Qty: 12 0RF Instructions: Dizziness (ED) Stand Alone Forms: Portal Instructions Referrals: Juliette Reaves MD [Primary Care Provider] - 1 week Discharge Date/Time: 05/14/23 00:37
[2023-05-13 21:17] LABS: Bilirubin Urine NEGATIVE (NEGATIVE); Blood Urine NEGATIVE (NEGATIVE); Clarity Urine CLEAR (CLEAR); Color Urine YELLOW (YELLOW); Glucose Urine UA NEGATIVE (NEGATIVE); Ketones Urine TRACE mg/dL (NEGATIVE); Leukocyte Esterase Urine NEGATIVE (NEGATIVE); Nitrite Urine NEGATIVE (NEGATIVE); Protein Urine TRACE mg/dL (NEG/TRACE)
[2023-05-13 21:19] LABS: Urine Microscopic Indicated NO
[2023-05-13] MEDS: DIAZEPAM 5 MG/ML - 2 ML INJ SYRINGE 2.5 MG IV ×2 (21:34→23:00)
[2023-05-13] MEDS: METHYLPREDNISOLONE SOD SUCC PF 125 MG/2 ML VIAL IVP (23:13)
== END 2023-05-14 00:37 | disposition home or self-care (01) ==
PROVIDERS: Physician Assistant; Emergency Provider Emergency Medicine; PCP Family Medicine
DX: R42 Dizziness and giddiness (principal); F17.210 Nicotine dependence, cigarettes, uncomplicated
CPT/HCPCS: 36415; 70450; 71045; 80053; 81003; 84484; 85025; 85610; 85730; 93005; 96361; 96374; 96375; 96376; 99285; J2930

== ENCOUNTER 2024-04-13 00:43 | Emergency (ER) | payer OTHER, SELFPAY ==
[2024-04-13 01:00] VITALS: BP 165/91; PULSE 85; TEMP 36.6; O2SAT 98; BMI 40.9
--- NOTE | 2024-04-13 01:13 | XR_ITS ---
[facility] [id number] Patient Name: SORAIDA RAPHAEL MRN: [id number] date: 1990 Sex: M Assigned Patient Location: ER Current Patient Location: ED.MAIN Accession/Order Number: [id number] Exam Date: 04/13/2024 01:25 Report Date: 04/13/2024 02:49 At the request of: PAUL MARKER Procedure: XR lumbar spine 2-3V EXAMINATION:XR lumbar spine 2-3V HISTORY:low back pain, [facility] COMPARISON:None TECHNIQUE:2 projections of the lumbar spine are submitted. FINDINGS: There is normal alignment of the lumbar spine without spondylolisthesis. No acute compression fractures are noted. There is mild disc space narrowing from the L4-S1 levels. Surrounding paraspinal soft tissues are grossly unremarkable. XR/XR lumbar spine 2-3V IMPRESSION: Mild degenerative disc disease from L4 through S1. Electronically authenticated by: KIA MORRIS Date: 04/13/2024 02:49
--- NOTE | 2024-04-13 01:14 | ED.BACK1 ---
HPI HPI - Back Pain/Injury General Chief Complaint: Back Pain/Injury Stated Complaint: BACK INJURY/C Time Seen by Provider: 04/13/24 01:02 Source: patient Mode of arrival: walk-in Limitations: no limitations History of Present Illness HPI Narrative: This 33-year-old male presents for evaluation of low back pain that radiates into both of his hips. 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 After his shift he went home and his back pain has persisted and become worse. He denies any fall at the time of his injury. He has not taken any medications prior to arrival but did use a heating pad without relief. He denies any weakness or numbness. He denies any loss of bowel or bladder control. He denies any chest pain or shortness of breath. The injury occurred approximately 10 hours ago. Related Data Previous Rx's ?Medication ?Instructions ?Recorded diazepam 5 mg tablet (Valium) 5 mg PO TID PRN dizziness #10 tabs 05/13/23 promethazine 25 mg tablet 25 mg PO Q6H PRN nausea and 05/13/23 vomiting #12 tabs Allergies Allergy/AdvReac Type Severity Reaction Status Date / Time No Known Drug Allergies Allergy Verified 04/13/24 01:05 Opioid HPI Opioid Management Most Recent Opioid Data: Last Pain Scale 5 04/13/24 01:47 Last MAR Pain Assessment 04/13/24 01:47 Review of Systems ROS Status of ROS 10 or more systems reviewed and unremarkable except as noted in history and below PFSH PFSH Social History Smoking status: Current every day smoker Exam Narrative Exam Narrative: Vital signs and Nursing Notes reviewed: Patient is afebrile with a normal pulse, blood pressure is elevated 165/91, he is not hypoxic with pulse ox of 98% on room air General: Awake, alert, oriented, no acute distress, sitting comfortably in a chair, easily stands to a standing position without appreciable discomfort or limitation HEENT: Normocephalic atraumatic, mucous membranes are moist and pink, eyes are clear, normal conjunctiva, vision is grossly intact Neck: Supple, no midline bony vertebral cervical or thoracic tenderness Chest: Lungs are clear to auscultation with good air entry, there is no wheezing rhonchi or rales appreciated no accessory muscle use, patient is speaking in complete sentences-no chest wall tenderness to palpation CVS: Regular rate and rhythm S1-S2, no murmurs rubs or gallops, pulses are brisk and equal bilaterally ABD: Soft, nondistended, nontender, no rebound guarding or rigidity, bowel sounds are normal, no pulsatile masses appreciated Musc; mild tenderness to palpation in the mid lumbar region, no appreciable muscle spasm in the adjacent lumbar muscles Extremities: Moving all extremities, no lower extremity tenderness or swelling noted, negative Homans' sign, pulses are brisk and equal bilaterally Skin: Normal in appearance without rash,pallor, petechiae or purpura Neuro: No focal deficits, no saddle anesthesia, upper and lower extremity strength and sensation is intact Constitutional Vital Signs, click to edit/add: Last Vital Signs Temp 98 F 04/13/24 01:00 Pulse 85 04/13/24 01:00 Resp 18 04/13/24 01:00 BP 165/91 H 04/13/24 01:00 Pulse Ox 98 04/13/24 01:00 O2 Del Method Room Air 04/13/24 01:00 Course Vital Signs Vital signs: Vital Signs Temperature 98 F 04/13/24 01:00 Pulse Rate 85 04/13/24 01:00 Respiratory Rate 18 04/13/24 01:00 Blood Pressure 165/91 H 04/13/24 01:00 Pulse Oximetry 98 04/13/24 01:00 Oxygen Delivery Method Room Air 04/13/24 01:00 Temperature 98 F 04/13/24 01:00 Pulse Rate 85 04/13/24 01:00 Respiratory Rate 18 04/13/24 01:00 Blood Pressure 165/91 H 04/13/24 01:00 Pulse Oximetry 98 04/13/24 01:00 Oxygen Delivery Method Room Air 04/13/24 01:00 MDM - Back Pain/Injury MDM Narrative Medical decision making narrative: 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 After that he went home and used a heating pad without significant improvement and had increasing pain across his lower lumbar region. He did not fall at the time of his injury. There is no neurologic symptoms. His physical exam is benign with some tenderness in his lumbar region. He was medicated emergency department with a dose of Toradol. X-ray of the lumbar spine was reviewed by myself and does not show any acute findings. He will be given 2 [place] to take home tonight and a prescription for ibuprofen and Parafon forte. He will be referred to [facility] for further evalaution and treatment. Medical Records Medical records narrative: [place] [address] XRay Report Signed Patient: SORAIDA RAPHAEL MR#: [id number] : 1990 Acct:[id number] Age/Sex: 33 / M ADM Date: 04/13/24 Loc: ER Attending Dr: Ordering Physician: Syl Gregory Date of Service: 04/13/24 Procedure(s): XR lumbar spine 2-3V Accession Number(s): [id number] cc: Juliette Reaves M.D.; Syl Marker~ [facility] [place] [facility] [id number] Patient Name: SORAIDA RAPHAEL MRN: [id number] date: 1990 Sex: M Assigned Patient Location: ER Current Patient Location: ED.MAIN Accession/Order Number: [id number] Exam Date: 04/13/2024 01:25 Report Date: 04/13/2024 02:49 At the request of: SYL MARKER Procedure: XR lumbar spine 2-3V EXAMINATION:XR lumbar spine 2-3V HISTORY:low back pain, [facility] COMPARISON:None TECHNIQUE:2 projections of the lumbar spine are submitted. FINDINGS: There is normal alignment of the lumbar spine without spondylolisthesis. No acute compression fractures are noted. There is mild disc space narrowing from the L4-S1 levels. Surrounding paraspinal soft tissues are grossly unremarkable. XR/XR lumbar spine 2-3V IMPRESSION: Mild degenerative disc disease from L4 through S1. Electronically authenticated by: KIA MORRIS Date: 04/13/2024 02:49 Discharge Plan Discharge Stand Alone Forms: Portal Instructions Chief Complaint: Back Pain/Injury Clinical Impression: Strain of lumbar region Patient Disposition: Home, Self-Care Time of Disposition Decision: 02:34 Condition: Good Prescriptions / Home Meds: No Action diazepam [Valium] 5 mg tablet 5 mg PO TID PRN (Reason: dizziness) Qty: 10 0RF Rx Instructions: DX: R42 promethazine 25 mg tablet 25 mg PO Q6H PRN (Reason: nausea and vomiting) Qty: 12 0RF Print Language: Estonian Instructions: Low Back Strain (ED), Back Pain (ED), Lower Back Exercises (ED) Referrals: Juliette Reaves MD [Primary Care Provider] - 1 week
[2024-04-13] MEDS: KETOROLAC TROMETHAMINE 60 MG/2 ML VIAL IM (01:47)
[2024-04-13] MEDS: HYDROCODONE/ACET 5-325 MG TABLET 2 TAB PO (03:05)
[2024-04-13] MEDS: ONDANSETRON 4 MG RAPDIS TABLET SL (03:05)
== END 2024-04-13 03:11 | disposition home or self-care (01) ==
PROVIDERS: Emergency Provider Emergency Medicine; PCP Family Medicine
DX: S39.012A Strain of muscle, fascia and tendon of lower back, initial encounter (principal); X50.9XXA Other and unspecified overexertion or strenuous movements or postures, initial encounter
CPT/HCPCS: 72100; 96372; 99284; J1885; Q0162

== ENCOUNTER 2024-04-27 08:14 | Outpatient (RCR) | payer OTHER, SELFPAY | END 2024-07-27 13:23 | disposition home or self-care (01) | LOC: PT 08:14 | PROVIDERS: PCP Family Medicine | DX: S33.5XXD Sprain of ligaments of lumbar spine, subsequent encounter (principal) | CPT/HCPCS: 97010; 97014; 97110; 97113; 97161 ==

== ENCOUNTER 2024-05-25 15:14 | Outpatient (OUT) | payer OTHER, SELFPAY ==
--- NOTE | 2024-05-25 15:17 | MR_ITS ---
[facility] [place] [id number] Patient Name: SORAIDA RAPHAEL MRN: [id number] date: 1990 Sex: M Assigned Patient Location: MRI Current Patient Location: Accession/Order Number: [id number] Exam Date: 05/25/2024 15:32 Report Date: 05/26/2024 07:28 At the request of: MIGUEL A CONTEH Procedure: MR lumbar spine wo con EXAMINATION: MR lumbar spine wo con HISTORY: Strain Of Muscle Low Back COMPARISON: No relevant comparison available. TECHNIQUE: A variety of imaging planes and parameters were utilized for visualization of suspected pathology. FINDINGS: For the purposes of numbering, sagittal T2 image # 8 extends from the T11-T12 vertebral body superiorly to the S3 level inferiorly. PARASPINAL AREA: Normal with no visible mass. BONES: Normal alignment of the lumbar vertebral bodies with no acute fracture or spondylolisthesis. No bone edema. CORD/CAUDA EQUINA: Normal caliber, contour, and signal intensity. DISC LEVELS: 12-L1: No significant disc/facet abnormality, spinal stenosis, or foraminal stenosis. L1-L2: No significant disc/facet abnormality, spinal stenosis, or foraminal stenosis. L2-L3: No significant disc/facet abnormality, spinal stenosis, or foraminal stenosis. L3-L4: No significant disc/facet abnormality, spinal stenosis, or foraminal stenosis. L4-L5: Disc desiccation. Posterior broad-based disc herniation the protrusion type measuring 1.5 cm at the base extending posteriorly up to 5.7 mm, sagittal image #7 there is seen superior likely subligamentous migration measuring 4 mm best seen on sagittal image #8. This displaces but does not definitively efface the nerves. There is mild narrowing of the central canal. No foraminal stenosis. L5-S1: Disc desiccation. Posterior central annular tear with small disc protrusion. Right lateral and foraminal disc herniation the protrusion type extending up to 3 mm abutting but not effacing the nerve roots. No central or foraminal stenosis MR/MR lumbar spine wo con IMPRESSION: Disc herniations at the L4-L5 and L5-S1 level as detailed above Electronically authenticated by: ARANZA MIKE Date: 05/26/2024 07:28
== END 2024-05-25 15:15 | disposition home or self-care (01) ==
LOC: MRI 15:14
PROVIDERS: PCP Family Medicine; Visit Provider Nurse Practitioner Family
DX: S39.012A Strain of muscle, fascia and tendon of lower back, initial encounter (principal); M51.26 Other intervertebral disc displacement, lumbar region
CPT/HCPCS: 72148

== ENCOUNTER 2024-06-23 14:09 | Outpatient (OUT) | payer OTHER, SELFPAY ==
--- NOTE | 2024-06-23 15:02 | PM.CN ---
Consult Note: HPI Data of Consult Patient: new to practice Requesting Physician: Trinh Carey NP Primary Care Provider: Juliette Reaves MD Consult Narrative Reason for consult: low back strain Narrative: Carlitos Dorado a pleasant 33 year old male presents for evaluation and management of low back pain. Patient experienced a work related injury on 04-12-24 and was evaluated by the ER on 04-13-24 where he was diagnosed with a low back strain. Patient had no imaging completed at the ER, he was prescribed a medrol dose pack without improvement and a muscle relaxer that he cannot recall but did not help. Patients PCP was able to complete a lumbar xray and lumbar MRI without contrast, results noted below. Patient has failed to benefit significantly from PT, he completed 13-14 visits and trialed traction. Patient has failed to benefit from ice/heat, tylenol, ibuprofen. Patient denies falls, loss of bowel or bladder. Patient denies heartburn/indigestion with nsaids. Patient recently placed on gabapentin 300mg BID with mild improvement at first but then became tolerant of, therfore it was discontinued. He is currently utilizing methocarbamol 750mg TID PRN which provides relief but makes him drowsy. Pain today 3-4/10 sharp ache, increasing to 10/10 at its worst. cc:: CC: Trinh Carey NP Review of Systems ROS Status of ROS 10 or more systems reviewed and unremarkable except as noted in history and below Musculoskeletal Reports: back pain and extremity pain PFSH PFSH Social History Smoking status: Current every day smoker Meds Home Medications and Allergies Home Medications ?Medication ?Instructions ?Recorded ?Confirmed ?Type diazepam 5 mg tablet (Valium) 5 mg PO TID PRN dizziness #10 tabs 05/13/23 Rx promethazine 25 mg tablet 25 mg PO Q6H PRN nausea and 05/13/23 Rx vomiting #12 tabs Allergies Allergy/AdvReac Type Severity Reaction Status Date / Time No Known Drug Allergies Allergy Verified 04/13/24 01:05 Exam Constitutional Documenting provider has reviewed patient's vital signs: yes Common normals: no apparent distress, oriented x3, healthy appearing, alert and well nourished General appearance: cooperative HENMN Common normals: normocephalic, hearing grossly normal bilaterally and moist oral mucous membranes Head and scalp: normocephalic Eye Common normals: PERRL Pupil: PERRL Neck & C-Spine Common normals: full ROM General: normal visual inspection Chest Common normals: inspection of chest normal Respiratory Common normals: normal respiratory effort, no retractions and no use of accessory muscles Back & Pelvis Lumbar spine/lower back: ROM limited, pain with ROM, lumbar spinal tenderness, paraspinal muscle tenderness and straight leg raise positive left Sacroiliac joints: SI joint(s) abnormal Other: positive axial facet loading bilaterally strength 5/5 in BLE altered sensation to left L4/5/s1 pattern left sij positive kurt(patricks), gaenslens, thigh thrust, compression test Back image (male): 1. 2. Extremity Common normals: normal to inspection and full ROM Neuro Common normals: oriented x3, CN's II-XII intact bilaterally, moves all extremities, no focal motor deficits, no sensory deficits noted and deep tendon reflexes 2+ bilaterally Sensorium/orientation: alert Motor exam: strength 5/5 throughout and no movement abnormalities noted Psych Common normals: mental status grossly normal, thought process normal, cooperative, affect normal, speech normal and activity/motor behavior normal Speech: normal speech Thought process: normal thought process Results Imaging Lumbar MRI: Attestation: I have reviewed the pertinent imaging results. Radiologist's impression: For the purposes of numbering, sagittal T2 image # 8 extends from the T11-T12 vertebral body superiorly to the S3 level inferiorly. PARASPINAL AREA: Normal with no visible mass. BONES: Normal alignment of the lumbar vertebral bodies with no acute fracture or spondylolisthesis. No bone edema. CORD/CAUDA EQUINA: Normal caliber, contour, and signal intensity. DISC LEVELS: 12-L1: No significant disc/facet abnormality, spinal stenosis, or foraminal stenosis. L1-L2: No significant disc/facet abnormality, spinal stenosis, or foraminal stenosis. L2-L3: No significant disc/facet abnormality, spinal stenosis, or foraminal stenosis. L3-L4: No significant disc/facet abnormality, spinal stenosis, or foraminal stenosis. L4-L5: Disc desiccation. Posterior broad-based disc herniation the protrusion type measuring 1.5 cm at the base extending posteriorly up to 5.7 mm, sagittal image #7 there is seen superior likely subligamentous migration measuring 4 mm best seen on sagittal image #8. This displaces but does not definitively efface the nerves. There is mild narrowing of the central canal. No foraminal stenosis. L5-S1: Disc desiccation. Posterior central annular tear with small disc protrusion. Right lateral and foraminal disc herniation the protrusion type extending up to 3 mm abutting but not effacing the nerve roots. No central or foraminal stenosis Additional Findings Additional findings: If on a controlled substance or opioids, I have checked an [place] report on this patient and there are no aberrancies noted in the prescribing history.??If on a controlled substance or opioid a drug screen was completed and reviewed within the last year, and if there has not been a drug screen completed we ordered one today to monitor higher risk, state monitored pain medication use. As part of providing excellent, safe, comprehensive care, the following was completed at our patient's visit: 1. A medication reconciliation and review to ensure accurate knowledge of current/active medications, including asking our patients to inform us about any [id number] medications or herbal remedies/nutritional supplements/alternative remedies. 2. A review to specifically ensure our patients have had annual screening for screening for depression, screening for tobacco use, and screening for unhealthy alcohol use. For concerning screenings had a discussion with the patient, provided patient education, and recommended follow-up with primary care provider when appropriate. If patient noted with a risk of falling, they received education on strength, gait, and balance training to prevent future risk of falling. Assessment and Plan Assessment and Plan (1) Strain of lumbar region: (2) Lumbar degenerative disc disease: (3) Lumbar radiculopathy: (4) Sacroiliitis: Plan 33 year old male with low back pain, failed to respond to tylenol, nsaids, medrol dose pack, gabapentin, methocarbamol, and >12 PT visits. Currently his only covered diagnosis for [facility] is strain of lumbar spine S39.012A for which is not the patients only source of pain. Patient has a positive left SLR, as well as altered sensation to LLE, this is secondary to lumbar disc bulge at L4-5 and potentially involving L5-S1. Patient also has symptoms of left sided sacroilitis. I have reached out to the patients PCP, Evette Gaffney and am hopeful we can get additional diagnosis' covered to assist in his care. He could benefit from a left L4-5 l5-S1 TFESI, potentially left SIJ. at this time we will advise pt to stop ibuprofen and otc nsaids, start mobic 7.5mg-15mg daily PRN pain. risks vs benefits reviewed. pt to call if he experiences side effects. can continue methocarbamol 750mg TID PRN myofascial pain/spasms
== END 2024-06-23 14:10 | disposition home or self-care (01) ==
LOC: PM 14:10
PROVIDERS: PCP Family Medicine; Visit Provider Nurse Practitioner
DX: S39.012A Strain of muscle, fascia and tendon of lower back, initial encounter (principal); M51.36 Other intervertebral disc degeneration, lumbar region; M54.16 Radiculopathy, lumbar region; M46.1 Sacroiliitis, not elsewhere classified
CPT/HCPCS: G0463

== ENCOUNTER 2025-04-29 03:01 | Emergency (ER) | payer SELFPAY ==
--- OUTSIDE RECORDS SUMMARY | 2025-04-29 03:07 | XMS_ITS | CCD ---
Author Organization [facility] Care Team Providers Care Retail Sales Director Name Role Phone JENNIFER HERNANDEZ Attending Unavailable REANNA BEDOYA Referring Unavailab erik SIMMONS, DR DANIEL Nieto Admitting Unavailshiela SIMMONS, DR DANIEL Nieto Consulting Unavailshiela SIMMONS, DR DANIEL Nieto Attending Unavailshiela MAURICIO, DR JULIETTE Duncan Primary Care Unavailable ZEHRA GONG Consulting Unavailable JULIETTE MAURICIO Primary Care Physician Enedina Milligan Unavailable Christie Owen Unavailable MD Juliette Mauricio Primary Care Provider [phone] ANDREINA Rosen Attending Provider Caren Rosen Unavailable Divya Wetzel Unavailable Juliette Mauricio Unavailable Juliette Mauricio Primary Care Unavailable Eladio Estrada Jr Attending Unavailable Eladio Estrada Jr Admitting Unavailable Allergies Allergy Classification Reported Allergen(s) Allergy Type Date of Onset Reaction(s) Facility (2 sources) patient allergy list reviewed by nurse or physicia Propensity to adverse reactions 6 Comment:Done BCNX Other (2 sources) Allergies Reconciled Propensity to adverse reactions Unknown BCNX Other Medications Current Medications Medication Drug Class(es) Dates Sig (Normalized) Sig (Original) amoxicillin 875 mg oral tablet (4 sources) Penicillin-class Antibacterial Start: 05-15-2023 take 1 tablet by mouth every twelve hours Amoxicillin 875 MG 1 capsule Orally Twice a day for 7 days May, Active Start: 04-27-2022 take 1 tablet by kylah th every twelve hours Amoxicillin 875 MG 1 tablet Orally every 12 hrs for 7 days Apr, Active Start: 06-28-2020 take 1 tablet by kylah th every twelve hours Amoxicillin 875 MG 1 tablet Orally every 12 hrs for 7 days Jun, Active azithromycin 250 mg oral tablet (1 source) Macrolide Antimicrobial Start: 12-08-2024 Azithromycin 250 mg tablet Active 0 PO daily 6 December 08, 2024 12:00am Take 2 on day 1 and then take 1 for the next 4 days (days 2-5) cetirizine hydrochloride 10 mg oral tablet (3 sources) Histamine-1 Receptor Antagonist Start: 05-15-2023 take 1 tablet by mouth every twenty-four hours Cetirizine HCl 10 MG 1 tablet Orally Once a day for 14 days May, Active Start: 06-28-2020 take 1 tablet by kylah th every twenty-four hours Cetirizine HCl 10 MG 1 tablet Orally Once a day for 30 day(s) Jun, Active fluticasone propionate 0.05 mg/actuat metered dose nasal spray (4 sources) Corticosteroid Start: 12-08-2024 take 1 spray(s) nasal route twice daily Fluticasone Propionate (Flonase Allergy Relief) 50 mcg/actuation spray,suspension Active 1 SPRAY INTRANASAL Twice daily December 08, 2024 12:00am administer into each nostril Start: 05-15-2023 take 1 spray(s) nasa l route once daily Flonase Allergy Relief 50 MCG/ACT 1 spray in each nostril Nasally Once a day for 14 day(s) May, Active Start: 06-28-2020 take 1 spray(s) nasa l route once daily Fluticasone Propionate 50 MCG/ACT 1 spray in each nostril Nasally Once a day for 30 day(s) Jun, Active ondansetron 4 mg oral tablet (1 source) Serotonin-3 Receptor Antagonist Start: 04-27-2022 take 1 tablet by mouth every eight hours as needed Zofran ODT 4 MG 1 tablet on the tongue and allow to dissolve Orally every 8 hrs as needed for 4 days Apr, Active 24 hr oxybutynin chloride 10 mg extended release oral tablet (3 sources) Cholinergic Muscarinic Antagonist Start: 04-24-2022 take 1 tablet by mouth once daily oxybutynin 10 mg ER Tab 10 mg = 1 tab(s), Oral, Daily, # 30 tab(s), Refills(s) 0, Pharmacy: [facility], 186, cm, 03/27/22 11:27:00 EDT, Height/Length Dosing, 142.9, kg, 03/27/22 11:27:00 EDT, Weight Dosing Start Date: 04/24/22 Status: Ordered Start: 04-24-2022 take 1 tablet by kylah th once daily oxybutynin 10 mg ER Tab 10 mg = 1 tab(s), Oral, Daily, # 30 tab(s), Refills(s) 0, Pharmacy: [facility], 186, cm, 03/27/22 11:27:00 EDT, Height/Length Dosing, 142.9, kg, 03/27/22 11:27:00 EDT, Weight Dosing Start Date: 04/24/22 Status: Ordered Start: 03-27-2022 End: 04-26-2022 take 1 tablet by mouth once daily oxybutynin 5 mg ER Tab 5 mg = 1 tab(s), Oral, Daily, X 30 day(s), # 30 tab(s), Refills(s) 0, Pharmacy: [facility], 186, cm, 03/27/22 11:27:00 EDT, Height/Length Dosing, 142.9, kg, 03/27/22 11:27:00 EDT, Weight Dosing Start Date: 03/27/22 Stop Date: 04/26/22 Status: Ordered Completed/Discontinued Medications Medication Drug Class(es) Dates Sig (Normalized) Sig (Original) [id number] 200 actuat albuterol 0.09 mg/actuat metered dose inhaler (5 sources) beta2-Adrenergic Agonist Start: 10-27-2022 take 2 puff(s) by inhalation every four hours as needed Albuterol Sulfate HFA 108 (90 Base) MCG/ACT 2 puffs as needed Inhalation every 4 hrs Oct, Not-Taking Start: 06-28-2020 take 2 puff(s) by in halation every four hours as needed Albuterol Sulfate HFA 108 (90 Base) MCG/ACT 2 puffs as needed Inhalation every 4 hrs for 30 days Jun, Active methylPREDNISolone 4 mg oral tablet (5 sources) Corticosteroid Start: 10-27-2022 methylPREDNISo lone 4 MG as directed Orally Once a day for 6 days Oct, Not-Taking Start: 07-01-2020 Medrol 4 MG as directed Orally for 6 days Jun, Active oseltamivir 75 mg oral capsule (4 sources) Neuraminidase Inhibitor Start: 10-27-2022 take 1 capsule by mouth every twelve hours Tamiflu 75 MG 1 capsule Orally Twice a day for 5 day(s) Oct, Not-Taking Problems Active Problems Problem Classification Problem Date Documented Date Episodic/Chronic Anxiety disorders (3 sources) Anxiety disorder; Translations: [Anxiety disorder, unspecified] Onset: 01-21-2019 Chronic Chronic obstructive pulmonary disease and bronchiectasis (3 sources) Bronchitis, not specified as acute or chronic; Translations: [Bronchitis] Episodic Conditions associated with dizziness or vertigo (1 source) Benign paroxysmal vertigo, unspecified ear Episodic E Codes: Fall (1 source) Unspecified fall, initial encounter; Translations: [UNSPECIFIED FALL INITIAL ENCOUNTER] Onset: 06-19-2021 Episodic Genitourinary symptoms and ill-defined conditions (7 sources) Increased frequency of urination; Translations: [Frequency of micturition] Onset: 10-23-2015 Episodic Headache; including migraine (7 sources) Migraine; Translations: [Migraine, unspecified, not intractable, without status migrainosus] Chronic Immunizations and screening for infectious disease (2 sources) Contact with and (suspected) exposure to other viral communicable diseases Onset: 08-02-2021 Resolved: 08-02-2021 Episodic Influenza (1 source) Influenza due to other identified influenza virus with other respiratory manifestations Episodic Noninfectious gastroenteritis (2 sources) Gastroenteritis; Translations: [Noninfective gastroenteritis and colitis, unspecified] 12-08-2024 Episodic Other circulatory disease (2 sources) Elevated blood-pressure reading without diagnosis of hypertension; Translations: [Elevated blood-pressure reading, without diagnosis of hypertension] Episodic Other ear and sense organ disorders (2 sources) Infective otitis externa; Translations: [Other infective otitis externa, left ear] Episodic Other ear and sense organ disorders (1 source) Impacted cerumen, right ear Episodic Other male genital disorders (2 sources) Impotence of organic origin; Translations: [Male erectile dysfunction, unspecified] Onset: 10-23-2015 Chronic Other non-traumatic joint disorders (3 sources) Pain in left knee; Translations: [PAIN IN LEFT KNEE] Onset: 06-17-2021 Episodic Other non-traumatic joint disorders (2 sources) Pain in wrist; Translations: [Pain in right wrist] Episodic Other nutritional; endocrine; and metabolic disorders (8 sources) Obese class II; Translations: [Body mass index (BMI) 39.0-39.9, adult] Onset: 01-21-2019 Chronic Other nutritional; endocrine; and metabolic disorders (6 sources) Body mass index 40+ - severely obese; Translations: [Body mass index (BMI) 40.0-44.9, adult] Chronic Other nutritional; endocrine; and metabolic disorders (1 source) Body mass index (BMI) 40.0-44.9, adult Chronic Otitis media and related conditions (4 sources) Otitis media, unspecified, left ear; Translations: [Other acute nonsuppurative otitis media, right ear] Onset: 04-27-2022 Resolved: 04-27-2022 Episodic Residual codes; unclassified (4 sources) Obstructive sleep apnea syndrome; Translations: [Obstructive sleep apnea (adult) (pediatric)] Chronic Residual codes; unclassified (1 source) Obstructive sleep apnea (adult) (pediatric) Chronic Sprains and strains (9 sources) Sprain of unspecified site of left knee, initial encounter; Translations: [Injury of musculoskeletal system] Onset: 06-19-2021 Episodic Substance-related disorders (2 sources) Nicotine dependence; Translations: [Nicotine dependence, cigarettes, with other nicotine-induced disorders] Onset: 05-06-2019 Chronic Viral infection (3 sources) COVID-19; Translations: [Disease caused by 2019-nCoV] Onset: 04-27-2022 Resolved: 04-27-2022 Past or Other Problems Problem Classification Problem Date Documented Da te Episodic/Chronic Allergic reactions (1 source) Contact dermatitis; Translations: [Contact dermatitis and other eczema, due to unspecified cause] Onset: 06-30-2015 Episodic Bacterial infection; unspecified site (1 source) Bacterial infectious disease; Translations: [Bacterial infection, unspecified, in conditions classified elsewhere and of unspecified site] Onset: 05-06-2019 Episodic Fever of unknown origin (1 source) Fever, unspecified Onset: 04-27-2022 Resolved: 04-27-2022 Episodic Nausea and vomiting (1 source) Nausea Onset: 04-27-2022 Resolved: 04-27-2022 Episodic Other ear and sense organ disorders (2 sources) Impacted cerumen; Translations: [Impacted cerumen, unspecified ear] Onset: 08-04-2013 Episodic Other gastrointestinal disorders (2 sources) Dysphagia; Translations: [Dysphagia, unspecified] Onset: 09-22-2013 Episodic Other upper respiratory infections (7 sources) Acute upper respiratory infection, unspecified; Translations: [Acute sinusitis] Onset: 08-04-2013 Resolved: 04-09-2022 Episodic Unclassified (1 source) Contact with and (suspected) exposure to covid-19 Z20.822 Onset: 04-09-2022 Resolved: 04-09-2022 Viral infection (2 sources) Infectious mononucleosis; Translations: [Infectious mononucleosis, unspecified without complication] Onset: 09-22-2013 Episodic Results Test Name Value Interpretation Reference Range Facility COVID/FLU/RSV RT-PCRon 10-27 SARS-CoV-2 (COVID-19) RNA TERRA+probe Ql (Unsp spec) Negative [facility] Other COVID/FLU/RSV RT-PCR Positive [facility] Other COVID/FLU/RSV RT-PCR Negative [facility] Other SARS-CoV-2 (COVID-19) RNA NA A+probe Ql (Resp)on 04-27-2022 SARS-CoV-2 (COVID-19) RNA TERRA+probe Ql (Unsp spec) Positive [facility] Other SARS-CoV-2 (COVID-19) RNA NA A+probe Ql (Resp)on 04-09-2022 SARS-CoV-2 (COVID-19) RNA TERRA+probe Ql (Unsp spec) Negative [facility] Other Physician Referralon 022 Physician Referral [id number] CD:127 Normal [facility] Formson 03-28-2022 Forms [id number] 0CD:127 Normal [facility] Ambulatory Visit Summaryon 0 03-27-2022 Ambulatory Visit Summary CARLITOS DORADO :1990 Visit Date:03/27/2022 Ambulatory Visit Instructions Your Diagnosis Urinary problem Tests Performed Urnls Dip Stick Auto w/o Microscopy POC 62537 Your Care Team Attending Physician - DANIA VALDEZ PA-C Primary Care Physician - JULIETTE MAURICIO MD Referring Physician - JULIETTE MAURICIO MD Procedures Performed Tonsillectomy. Discharge Vitals Heart Rate (Peripheral) 87 Respiratory Rate 16 Blood Pressure 147/117 Height 186 cm Height 186.0 cm Weight 142.9 kg Weight 142.9 kg BMI 41.31 What to do next Scheduled Follow-Up Appointments Friday 1:20 PM EDT With: DANIA VALDEZ PA-C Where: [facility] Patient Educationon 03-27-20 22 Patient Education Urinary Frequency, Adult Urinary frequency means urinating more often than usual. You may urinate every 1?2 hours even though you drink a normal amount of fluid and do not have a bladder infection or condition. Although you urinate more often than normal, the total amount of urine produced in a day is normal. With urinary frequency, you may have an urgent need to urinate often. The stress and anxiety of needing to find a bathroom quickly can make this urge worse. This condition may go away on its own or you may need treatment at home. Home treatment may include bladder training, exercises, taking medicines, or making changes to your diet. Follow these instructions at home: Bladder health ? Keep a bladder diary if told by your health care provider. Keep track of: ? What you eat and drink. ? How often you urinate. ? How much you urinate. ? Follow a bladder training program if told by your health care provider. This may include: ? Learning to delay going to the bathroom. ? Double urinating (voiding). This helps if you are not completely emptying your bladder. ? Scheduled voiding. ? Do Kegel exercises as told by your health care provider. Kegel exercises strengthen the muscles that help control urination, which may help the condition. Eating and drinking ? If told by your health care provider, make diet changes, such as: ? Avoiding caffeine. ? Drinking fewer fluids, especially alcohol. ? Not drinking in the evening. ? Avoiding foods or drinks that may irritate the bladder. These include coffee, tea, soda, artificial sweeteners, citrus, tomato-based foods, and chocolate. ? Eating foods that help prevent or ease constipation. Constipation can make this condition worse. Your health care provider may recommend that you: ? Drink enough fluid to keep your urine pale yellow. ? Take crbt-snq-ezhwfbc or prescription medicines. ? Eat foods that are high in fiber, such as beans, whole grains, and fresh fruits and vegetables. ? Limit foods that are high in fat and processed sugars, such as fried or sweet foods. General instructions ? Take chwy-neq-zmpauoy and prescription medicines only as told by your health care provider. ? Keep all follow-up visits as told by your health care provider. This is important. Contact a health care provider if: ? You start urinating more often. ? You feel pain or irritation when you urinate. ? You notice blood in your urine. ? Your urine looks cloudy. ? You develop a fever. ? You begin vomiting. Get help right away if: ? You are unable to urinate. Summary ? Urinary frequency means urinating more often than usual. With urinary frequency, you may urinate every 1?2 hours even though you drink a normal amount of fluid and do not have a bladder infection or other bladder condition. ? Your health care provider may recommend that you keep a bladder diary, follow a bladder training program, or make dietary changes. ? If told by your health care provider, do Kegel exercises to strengthen the muscles that help control urination. ? Take mvdu-apn-buvcwbg and prescription medicines only as told by your health care provider. ? Contact a health care provider if your symptoms do not improve or get worse. This information is not intended to replace advice given to you by your health care provider. Make sure you discuss any questions you have with your health care provider. Document Released: 07/26/2010 Document Revised: 04/08/2019 Document Reviewed: 04/08/2019 [employer] Patient Education ? 2020 [employer]. Urology Urinary Frequency, Adult Urinary frequency means urinating more often than usual. You may urinate every 1?2 hours even though you drink a normal amount of fluid and do not have a bladder infection or condition. Although you urinate more often than normal, the total amount of urine produced in a day is normal. With urinary frequency, you may have an urgent need to urinate often. The stress and anxiety of needing to find a bathroom quickly can make this urge worse. This condition may go away on its own or you may need treatment at home. Home treatment may include bladder training, exercises, taking medicines, or making changes to your diet. Follow these instructions at home: Bladder health ? Keep a bladder diary if told by your health care provider. Keep track of: ? What you eat and drink. ? How often you urinate. ? How much you urinate. ? Follow a bladder training program if told by your health care provider. This may include: ? Learning to delay going to the bathroom. ? Double urinating (voiding). This helps if you are not completely emptying your bladder. ? Scheduled voiding. ? Do Kegel exercises as told by your health care provider. Kegel exercises strengthen the muscles that help control urination, which may help the condition. Eating and drinking ? If told by your health care provider, make diet alejandra (more content not included)... [facility] Urology Office/Clinic Noteon 03-27-2022 Urology Office/Clinic Note Chief Complaint New patient frequency HPI Staff Carlitos is here today as a new patient for frequency. Father has a history of a kidney disease and pt wants to rule that out. Dysuria: _Denies Incomplete bladder emptying: _half of the time but especially at night Hematuria: _Denies Frequency: _every hour on most occ Urgency: _Denies Nocturia: _4-5 times a night Stream: _steady stream Leaking: _Denies Post void dripping: _Denies Wearing pads/ Depends: _Denies Urge incontinence: _Denies Stress incontinence: _Denies Incontinence without Sensory Awareness: _Denies Abdominal pain: _Denies Flank pain: _Denies Sexual complaints: _ History of Present Illness staff HPI reviewed and agree. Review of Systems PHQ Score Initial Depression Screen Score: 0 no fever, chills, malaise, myalgia. no rash/lesions. no chest pain, palpitations, or SOB. no abdominal pain, nausea, vomiting. no unilateral calf swelling, redness, pain Physical Exam Vitals & Measurements HR: 87(Peripheral) RR: 16 BP: 147/117 HT: 186 cm HT: 186.0 cm WT: 142.9 kg WT: 142.9 kg BMI: 41.31 General: nontoxic, NAD Mouth: moist mucosa Lungs: normal respiratory effort Cardio: regular rate, good distal perfusion Abdomen: nondistended, no suprapubic distention or tenderness, no CVA tenderness Neurologic: Grossly normal Skin: No rashes or suspicious lesions Assessment/Plan 1. Urinary frequency (R35.0: Frequency of micturition) UA completed in office today shows no microhematuria or signs of infection. drinks water, 3 cans of coke daily, and occasionally a red bull. discussed bladder irritants at length. pt given written information to review at home. pt states frequency has been lifelong, not just since he started drinking coke/red bull. always has had a 'tiny bladder.' but much worse over the past few years. goes every hr during the day and 4-5x while he sleeps. says he can hold his urine but the urge makes it hurt a bit if he doesn't get to the bathroom quickly. discussed giving dietary changes a change, but pt finds sx very bothersome and would like to try medication. he denies straining, weak stream, intermittency, hesitancy. Discussed medication management including anticholinergics and Myrbetriq. Myrbetriq is often preferable due to lower side effect profile, but most insurances don't cover it without trying anticholinergics first. Therefore we will start with Oxybutynin. Pt will start with lowest daily dose and slowly titrate up as pt tolerates. I explained the most common side effects are dry mouth, dry eyes, and constipation. We discussed OTC options to help with these side effects. Pt will stop medication and call office if side effects become intolerable. if sx don't respond to oral agents, would likely perform cysto/urodynamics for further eval. pt would like to hold off on any work-up like this right now. f/u 2 mos Ordered: oxybutynin, 10 mg = 1 tab(s), Oral, Daily, # 30 tab(s), Refills(s) 0, Pharmacy: [facility], 186, cm, 03/27/22 11:27:00 EDT, Height/Length Dosing, 142.9, kg, 03/27/22 11:27:00 EDT, Weight Dosing oxybutynin, 5 mg = 1 tab(s), Oral, Daily, X 30 day(s), # 30 tab(s), Refills(s) 0, Pharmacy: [facility], 186, cm, 03/27/22 11:27:00 EDT, Height/Length Dosing, 142.9, kg, 03/27/22 11:27:00 EDT, Weight Dosing E&M of New Patient Moderate 45-59 Min 35019 Orders: Urnls Dip Stick Auto w/o Microscopy POC 69027 Follow-up No qualifying data available Patient Education Urinary Frequency, Adult Urinary Frequency, Adult Problem List/Past Medical History Ongoing Urinary frequency Historical No qualifying data Procedure/Surgical History Tonsillectomy. Medications oxybutynin 10 mg ER Tab, 10 mg= 1 tab(s), Oral, Daily oxybutynin 5 mg ER Tab, 5 mg= 1 tab(s), Oral, Daily Allergies No Known Medication Allergies Social History Tobacco 10 or more cigarettes (1/2 pack or more)/day in last 30 days Tobacco Use:., 03/27/2022 Family History Arthritis: Father and Grandparent. High blood pressure: Mother. Kidney disease: Father. Lab Results Ambulatory Point of Care Results Bilirubin Urine Dipstick: Negative (03/27/22 11:30:00) Blood Urine Dipstick: Negative (03/27/22 11:30:00) Glucose Urine Dipstick: Negative (03/27/22 11:30:00) Ketones Urine Dipstick: Negative (03/27/22 11:30:00) Leukocytes Urine Dipstick: Negative (03/27/22 11:30:00) Nitrite Urine Dipstick: Negative (03/27/22 11:30:00) Protein Urine Dipstick: Negative (03/27/22 11:30:00) Specific Coleman Urine Dipstick: >=1.030 (03/27/22 11:30:00) Urine Appearance Urine Dipstick: Clear (03/27/22 11:30:00) Urine Color Urine Dipstick: Yellow (03/27/22 11:30:00) Urobilinogen Urine Dipstick: Normal 0.2-1 EU/dl (03/27/22 11:30:00) pH Urine Dipstick: 5.5 (03/27/22 11:30:00) Normal [facility] Comment on above: Result Comment: Elec tronically Signed By: COURTNEY SANCHEZ, DANIA Figueroa.shirlene\Date and Time Signed: 03/27/22 14:01 EDT COVID Quick Testingon 2020 Result Negative BCNX Other XR KNEE LT 4V or >on 021 XR KNEE LT 4V or > IMAGES REVIEWED: XR KNEE LT 4V or > COMPARISON: None available. CLINICAL INDICATION: Injury, medial pain. FINDINGS/IMPRESSION: No radiographic evidence of acute osseous abnormality of the left knee. No lipohemarthrosis to suggest occult fracture. Electronically authenticated by: ZEHRA GONG Date: 2021-06-17 17:23 Normal [facility] PROGRESSon 11-18-2018 Protein mass conc HNO ID: [id number] Author: Jennifer Hernandez I Service: (none) Author Type: Physician Type: Progress Notes Filed: 11/18/2018 3:10 PM Note Text: 28 yo man here for evaluation 1. Hx of strabismus srg, ?ET - now consecutive XT, 12 PD - Could operate on him if he likes to. - will think about it and let us know. 2. Nasal granulomas ?FB in vicinity of conj scar - asymptomatic - observe RTC prn Dinorah Schwarz, (Fel) [facility]. MPhil, Nusrat, BEng I have confirmed and edited as necessary the relevant ophthalmic history, ROS, and the neuro exam findings as obtained by others. I have seen and examined this patient. I have discussed the case and the management of this patient's care with the Resident/Fellow, if applicable. I also have reviewed and agree with the assessment and plan as stated above and agree with all of its relevant components. Jennifer Hernandez MD November 18, 2018 3:09 PM Normal [facility] Vital Signs Date Time Vital Sign Value Performing Clinician Facility 12-08-2024 09:44-0500 Body height 185.[address] [facility] 12-08-2024 09:44-0500 Body mass index (BMI) [Ratio] 41.6 kg/m2 [facility] 12-08-2024 09:44-0500 Body temperature 99.6 [degF] [facility] 12-08-2024 09:44-0500 Body weight 143.[address] [facility] 12-08-2024 09:44-0500 Diastolic blood pressure 88 mm[Hg] [facility] 12-08-2024 09:44-0500 Heart rate 90 /min [facility] 12-08-2024 09:44-0500 SaO2% (BldA) [Mass fraction] 95 % [facility] 12-08-2024 09:44-0500 Systolic blood pressure 120 mm[Hg] [facility] 05-22-2023 15:00-0400 Body height 186.69 cm Juliette Mauricio Other [facility] Other 05-22-2023 15:00-0400 Body mass index (BMI) [Ratio] 39.82 kg/m2 Juliette Mauricio Other [facility] [employer] Other 05-22-2023 15:00-0400 Body weight 138.8 kg Juliette Mauricio Other [facility] [employer] Other 05-22-2023 15:00-0400 Diastolic blood pressure 79 mm[Hg] Juliette Mauricio Other [facility] [employer] Other 05-22-2023 15:00-0400 Systolic blood pressure 112 mm[Hg] Juliette Mauricio Other [facility] [employer] Other 05-15-2023 18:55-0400 Body height 186.69 cm Divya Wetzel Other [employer] Other 05-15-2023 18:55-0400 Body mass index (BMI) [Ratio] 40.08 kg/m2 Divya Rashard Other [employer] Other 05-15-2023 18:55-0400 Body temperature 98.9 [degF] Divya Wetzel Other [employer] Other 05-15-2023 18:55-0400 Body weight 139.71 kg Divya Wetzel Other [employer] Other 05-15-2023 18:55-0400 Diastolic blood pressure 91 mm[Hg] Divya Wetzel Other [employer] Other 05-15-2023 18:55-0400 Respiratory rate 18 /min Divya Wetzel Other [employer] Other 05-15-2023 18:55-0400 SaO2% (BldA) [Mass fraction] 97 % Divya Wetzel Other [employer] Other 05-15-2023 18:55-0400 Systolic blood pressure 134 mm[Hg] Divya Wetzel Other [employer] Other 10-27-2022 12:15-0500 Body height 186.69 cm Enedina Hernandezault Other [employer] Other 10-27-2022 12:15-0500 Body mass index (BMI) [Ratio] 40.34 kg/m2 Enedina Chel Other [employer] Other 10-27-2022 12:15-0500 Body temperature 99 [degF] Enedina Milligan Other [employer] Other 10-27-2022 12:15-0500 Body weight 140.62 kg Enedina Milligan Other [employer] Other 10-27-2022 12:15-0500 Respiratory rate 18 /min Enedina Milligan Other [employer] Other 10-27-2022 12:15-0500 SaO2% (BldA) [Mass fraction] 95 % Enedina Milligan Other [employer] Other 10-18-2022 10:30-0500 Body height 186.69 cm Caren Rosen Other [employer] Other 10-18-2022 10:30-0500 Body mass index (BMI) [Ratio] 40.54 kg/m2 Caren Rosen Other [employer] Other 10-18-2022 10:30-0500 Body temperature 99.5 [degF] Caren Rosen Other [employer] Other 10-18-2022 10:30-0500 Body weight 141.3 kg Caren Rosen Other [employer] Other 10-18-2022 10:30-0500 Diastolic blood pressure 92 mm[Hg] Caren Rosen Other [employer] Other 10-18-2022 10:30-0500 SaO2% (BldA) [Mass fraction] 97 % Caren Rosen Other [employer] Other 10-18-2022 10:30-0500 Systolic blood pressure 144 mm[Hg] Caren Rosen Other [employer] Other 04-27-2022 15:25-0400 Body height 186.69 cm Enedina Milligan Other [employer] Other 04-27-2022 15:25-0400 Body mass index (BMI) [Ratio] 40.34 kg/m2 Enedina Milligan Other [employer] Other 04-27-2022 15:25-0400 Body temperature 98.9 [degF] Enedina Milligan Other [employer] Other 04-27-2022 15:25-0400 Body weight 140.62 kg Enedina Milligan Other [employer] Other 04-27-2022 15:25-0400 SaO2% (BldA) [Mass fraction] 95 % Enedina Milligan Other [employer] Other 04-09-2022 17:50-0400 Body height 186.69 cm Christie Lexie Other [employer] Other 04-09-2022 17:50-0400 Body mass index (BMI) [Ratio] 40.99 kg/m2 Christie Owen Other [employer] Other 04-09-2022 17:50-0400 Body temperature 98 [degF] Christie Owen Other [employer] Other 04-09-2022 17:50-0400 Body weight 142.88 kg Christie Owen Other [employer] Other 04-09-2022 17:50-0400 Respiratory rate 18 /min Christie Owen Other [facility] [employer] Other 04-09-2022 17:50-0400 SaO2% (BldA) [Mass fraction] 96 % Christie Owen Other [facility] [employer] Other 03-27-2022 11:21-0400 Blood Pressure Location DANIA VALDEZ [facility] 03-27-2022 11:21-0400 Diastolic blood pressure 117 mm[Hg] DANIA VALDEZ [facility] 03-27-2022 11:21-0400 Heart rate 87 /min DANIA VALDEZ [facility] 03-27-2022 11:21-0400 Respiratory rate 16 /min DANIA VALDEZ [facility] [employer] 03-27-2022 11:21-0400 Systolic blood pressure 147 mm[Hg] DANIA VALDEZ [facility] Encounters Encounter Date Encounter Type Care Provider Facility Start: 12-08-2024 End: 12-08-2024 ambulatory [facility] Work Phone: Start: 12-08-2024 End: 12-08-2024 Patient encounter procedure [facility] Work Phone: Start: 09-03-2024 End: 09-03-2024 ambulatory Juliette Mauricio Facility:[facility] Start: 05-22-2023 End: 05-22-2023 ambulatory Juliette Mauricio Other [employer] Other Start: 05-22-2023 Office outpatient visit 15 minutes Juliette Mauricio [facility] Start: 05-15-2023 End: 05-15-2023 ambulatory Divya Wetzel Other [employer] Other Start: 05-15-2023 Office outpatient visit 15 minutes Divya Wetzel [facility] Start: 10-27-2022 End: 10-27-2022 ambulatory Enedina Milligan Other [employer] Other Start: 10-27-2022 Office outpatient visit 15 minutes Enedinarubin Milligan [facility] Start: 10-18-2022 Office outpatient visit 15 minutes Caren Rosen [facility] Start: 10-18-2022 End: 10-18-2022 ambulatory MD Juliette Mauricio Work Phone: [facility] Work Phone: Start: 10-18-2022 End: 10-18-2022 Patient encounter procedure MD Juliette Mauricio Work Phone: [facility] Work Phone: Start: 05-29-2022 End: 05-29-2022 Patient encounter procedure DANIA VALDEZ [facility] Start: 04-27-2022 End: 04-27-2022 ambulatory Enedina Milligan Other [employer] Other Start: 04-27-2022 Office outpatient visit 25 minutes Enedinarubin Milligan [facility] Start: 04-09-2022 End: 04-09-2022 ambulatory Christie Owen Other [employer] Other Start: 04-09-2022 Office outpatient visit 15 minutes Christie Owen [facility] Start: 03-27-2022 End: 03-27-2022 Patient encounter procedure DANIA E COURTNEY [facility] Start: 08-02-2021 End: 08-02-2021 ambulatory Enedina Milligan Other [place] [employer] Other Start: 08-02-2021 Office outpatient visit 5 minutes Enedina Milligan [facility] Start: 06-17-2021 End: 06-17-[address] DANIEL SIMMONS Facility: Start: 11-18-2018 End: 11-20-2018 Patient encounter procedure JENNIFER HERNANDEZ [facility] Procedures Date Procedure Procedure Detail Performing Clinician Tonsillectomy DANIA VALDEZ Payers Date Payer Category Payer Self-pay [id number] 1990 Unknown [id number] 1957 Self-pay [id number] Medicaid [id number] Private Health Insurance [facility] [employer] [id number] Unknown [id number] Unknown [id number] [facility] [id number] Unknown [id number] Unknown [facility] [employer] [facility] [id number] Worker's Compensation [facility] [employer] [facility] [id number] Social History Date Type Detail Facility Start: 03-27-2022 Tobacco smoking status Heavy t obacco smoker (finding) [facility] [employer] Other Sex Assigned At Male [facility] [employer] Other Start: 1990 Sex Assigned At Male F [facility] Start: 10-15-2018 Tobacco smoking stat us NHIS Smoker (finding) [facility] Start: 12-08-2024 Sex Male (finding) [facility] Functional Status Date Assessment Result Facility 03-27-2022 Functional Status N/A [facility] Clinical Notes 08-02-2021 to 05-22-2023 Note Date & Type Note Facility 05-22-2023 Evaluation note Encounter Date Diagnosis Assessment Notes May, Benign paroxysmal positional vertigo, unspecified laterality (ICD-10 - H81.10) Continue meds from ER. Symptoms improved. Note given for work. [facility] [employer] Other 08-03-2023 Evaluation note* Encounter Date Diagnosis Assessment Notes Treatment Notes Treatment Clinical Notes May, Right ear impacted cerumen (ICD-10 - H61.21) Ear lavage in office today. Discussed proper ear hygiene. Avoid putting anything inside the ear such as Q-tips, etc. Patient may use OTC wax softeners (Debrox) as directed as needed. Follow up with UC or PCP as needed. Immediate eval for ear drainage, pain, loss of hearing, ringing, dizziness, fever, redness, swelling, and pain behind the ear, headache, neck pain, or any other new or concerning symptoms. Patient verbalizes understanding and is agreeable to treatment plan May, Acute otitis media with effusion of right ear (ICD-10 - H65.191) Discussed diagnosis with patient. Advised patient to take antibiotics as directed, complete entire course even if feeling better. Use rx of Flonase and Zyrtec as directed. Supportive care, Tylenol/Motrin as needed for aches/fever, warm compress to affected ear, push fluids and rest. Follow up with PCP if symptoms do not improve in the next 2-3 days. Immediate eval for severe ear pain, severe headache, neck pain/stiffness, pain, erythema, or redness behind the ear, fever, N/V, hearing loss, fever, or any other new or concerning symptoms. Patient verbalizes understanding and is agreeable to treatment plan [employer] Other 01-15-2023 Evaluation note* Encounter Date Diagnosis Assessment Notes Treatment Notes Treatment Clinical Notes Oct, Contact with and (suspected) exposure to other viral communicable diseases (ICD-10 - Z20.828) Oct, Influenza A (ICD-10 - J10.1) Symptoms presented today are related to the Flu. May use OTC medications such as Mucinex DM, Flu meds, etc. Kids can use Dimatapp or Delsym. Continue tylenol/ibu for general discomfort. Encourage fluids. Antibiotics will not treat the flu. Symptoms should improve within the next 4-7 days. Oct, Bronchitis (ICD-10 - J40) Take medications as directed. Rest and increase fluid intake. Take meds with food to prevent stomach upset. Use inhaler as needed for coughing spells and SOB. It is better to use inhaler a few times a day over the next 2-3 days. Follow up with primary care provider if symptoms do not improve with treatment plan, although it may take a few weeks for the cough to go away [facility] Other 01-06-2023 Evaluation note* Encounter Date Diagnosis Assessment Notes Treatment Notes Treatment Clinical Notes Oct, Obstructive sleep apnea (ICD-10 - G47.33) Fortunately, the patient is using and benefiting from treatment. Download was reviewed with patient, Current pressure is controlling apnea well, And we will make no changes at this time. A prescription was sent to the [facility] for new supplies throughout the year. He was encouraged to continue to use his machine nightly, throughout the entire night and for naps as this does provide clinical benefit. He will follow-up in the sleep clinic in 1 year or sooner if problems. Oct, BMI 40.0-44.9, adult (ICD-10 - Z68.41) Weight reduction is broadly beneficial and can have significant positive effects on sleep apnea severity Oct, Other Call if any questions or problems. For Sleep Apnea: Patient is advised to work on healthy diet choices and appropriate servings, weight control, regular exercise as directed, and reduce fat intake. Use machine regularly, and keep up with mask changes as needed. Call if problems with mask toleration, increased sleepiness, or poor response to treatment. Take medication as prescribed, keep follow up appointments, get any testing that's been ordered in a timely fashion. Do not smoke [facility] Other 07-16-2022 Evaluation note* Encounter Date Diagnosis Assessment Notes Treatment Notes Treatment Clinical Notes Apr, Left acute otitis media (ICD-10 - H66.92) Ear infections are often a secondary infection caused from an URI, the flu or allergies. Take medication as directed. Complete all doses, even if you feel better. Tylenol or ibuprofen can help with pain. Warm pack to area for comfort helps as well. Follow up with primary care provider if no improvement of symptoms. Apr, COVID-19 (ICD-10 - U07.1) Today you tested positive for the COVID virus. This mean you need to follow all CDC quarantine guidelines found at coronavirus.[email or web address].go v. It is important to rest, increase fluids, and stay at home. Contact PCP and inform them of results. Medications like Mucinex, Cepacol, Tylenol, saline nasal spray are over the counter medications that can help with the symptoms. Current guidelines include staying home, having no fever above 100.4 for 24 hours without medication and having significant improvement of symptoms before you are allowed to stop your quarantine.. For full guidelines go to CDC. GOV. Contact primary care and ask for guidance is essential to follow up * EDUCATION HANDOUT GIVEN ON OTC TREATMENTS, FOLLOW UP AND WHEN TO SEEK EMERGENCY TREATMENT Apr, Fever (ICD-10 - R50.9) Apr, Nausea (ICD-10 - R11.0) [facility] Other 06-28-2022 Evaluation note* Encounter Date Diagnosis Assessment Notes Treatment Notes Treatment Clinical Notes Mar, Contact with and (suspected) exposure to covid-19 (ICD-10 - Z20.822) Mar, Viral upper respiratory infection (ICD-10 - J06.9) Drink plenty fluids, get plenty of rest. Take Tylenol or Motrin for aches pains or fevers. Follow-up with your family physician if no improvement in 2 to 3 days. Mar, Other Additional time spent conducting pre-visit phone call, screening for symptoms, instructions on social distancing, application and removal of PPE, and cleaning of examination room, equipment and supplies was performed. Patient education given for testing methodology and results. Patient care instructions given in writing by [facility] At Home document. [facility] Other 06-15-2022 Hospital Discharge instructions Patient Education 03/27/2022 14:01:09 Urinary Frequency, Adult Urinary Frequency, Adult Urinary frequency means urinating more often than usual. You may urinate every 1 2 hours even though you drink a normal amount of fluid and do not have a bladder infection or condition. Although you urinate more often than normal, the total amount of urine produced in a day is normal. With urinary frequency, you may have an urgent need to urinate often. The stress and anxiety of needing to find a bathroom quickly can make this urge worse. This condition may go away on its own or you may need treatment at home. Home treatment may include bladder training, exercises, taking medicines, or making changes to your diet. Follow these instructions at home: Bladder health Keep a bladder diary if told by your health care provider. Keep track of: ?What you eat and drink. ?How often you urinate. ?How much you urinate. Follow a bladder training program if told by your health care provider. This may include: ?Learning to delay going to the bathroom. ?Double urinating (voiding). This helps if you are not completely emptying your bladder. ?Scheduled voiding. Do Kegel exercises as told by your health care provider. Kegel exercises strengthen the muscles that help control urination, which may help the condition. Eating and drinking If told by your health care provider, make diet changes, such as: ?Avoiding caffeine. ?Drinking fewer fluids, especially alcohol. ?Not drinking in the evening. ?Avoiding foods or drinks that may irritate the bladder. These include coffee, tea, soda, artificial sweeteners, citrus, tomato-based foods, and chocolate. ?Eating foods that help prevent or ease constipation. Constipation can make this condition worse. Your health care provider may recommend that you: ?Drink enough fluid to keep your urine pale yellow. ?Take itmv-pfj-nkqyvul or prescription medicines. ?Eat foods that are high in fiber, such as beans, whole grains, and fresh fruits and vegetables. ?Limit foods that are high in fat and processed sugars, such as fried or sweet foods. General instructions Take zthy-nbd-htdmwpe and prescription medicines only as told by your health care provider. Keep all follow-up visits as told by your health care provider. This is important. Contact a health care provider if: You start urinating more often. You feel pain or irritation when you urinate. You notice blood in your urine. Your urine looks cloudy. You develop a fever. You begin vomiting. Get help right away if: You are unable to urinate. Summary Urinary frequency means urinating more often than usual. With urinary frequency, you may urinate every 1 2 hours even though you drink a normal amount of fluid and do not have a bladder infection or other bladder condition. Your health care provider may recommend that you keep a bladder diary, follow a bladder training program, or make dietary changes. If told by your health care provider, do Kegel exercises to strengthen the muscles that help control urination. Take zecr-xlg-ytgtsqt and prescription medicines only as told by your health care provider. Contact a health care provider if your symptoms do not improve or get worse. This information is not intended to replace advice given to you by your health care provider. Make sure you discuss any questions you have with your health care provider. Document Released: 07/26/2010 Document Revised: 04/08/2019 Document Reviewed: 04/08/2019 [employer] Patient Education 2020 [employer]. 03/27/2022 14:00:20 Urinary Frequency, Adult Urinary Frequency, Adult Urinary frequency means urinating more often than usual. You may urinate every 1 2 hours even though you drink a normal amount of fluid and do not have a bladder infection or condition. Although you urinate more often than normal, the total amount of urine produced in a day is normal. With urinary frequency, you may have an urgent need to urinate often. The stress and anxiety of needing to find a bathroom quickly can make this urge worse. This condition may go away on its own or you may need treatment at home. Home treatment may include bladder training, exercises, taking medicines, or making changes to your diet. Follow these instructions at home: Bladder health Keep a bladder diary if told by your health care provider. Keep track of: ?What you eat and drink. ?How often you urinate. ?How much you urinate. Follow a bladder training program if told by your health care provider. This may include: ?Learning to delay going to the bathroom. ?Double urinating (voiding). This helps if you are not completely emptying your bladder. ?Scheduled voiding. Do Kegel exercises as told by your health care provider. Kegel exercises strengthen the muscles that help control urination, which may help the condition. Eating and drinking If told by your health care provider, make diet changes, such as: ?Avoiding caffeine. ?Drinking fewer fluids, especially alcohol. ?Not drinking in the evening. ?Avoiding foods or drinks that may irritate the bladder. These include coffee, tea, soda, artificial sweeteners, citrus, tomato-based foods, and chocolate. ?Eating foods that help prevent or ease constipation. Constipation can make this condition worse. Your health care provider may recommend that you: ?Drink enough fluid to keep your urine pale yellow. ?Take maac-eqf-dpgucbp or prescription medicines. ?Eat foods that are high in fiber, such as beans, whole grains, and fresh fruits and vegetables. ?Limit foods that are high in fat and processed sugars, such as fried or sweet foods. General instructions Take nzxw-lox-lymynnm and prescription medicines only as told by your health care provider. Keep all follow-up visits as told by your health care provider. This is important. Contact a health care provider if: You start urinating more often. You feel pain or irritation when you urinate. You notice blood in your urine. Your urine looks cloudy. You develop a fever. You begin vomiting. Get help right away if: You are unable to urinate. Summary Urinary frequency means urinating more often than usual. With urinary frequency, you may urinate every 1 2 hours even though you drink a normal amount of fluid and do not have a bladder infection or other bladder condition. Your health care provider may recommend that you keep a bladder diary, follow a bladder training program, or make dietary changes. If told by your health care provider, do Kegel exercises to strengthen the muscles that help control urination. Take kpdp-zeg-yoxzavn and prescription medicines only as told by your health care provider. Contact a health care provider if your symptoms do not improve or get worse. This information is not intended to replace advice given to you by your health care provider. Make sure you discuss any questions you have with your health care provider. Document Released: 07/26/2010 Document Revised: 04/08/2019 Document Reviewed: 04/08/2019 [employer] Patient Education 2020 [employer]. [facility] 10-21-2021 Evaluation note* Encounter Date Diagnosis Assessment Notes Treatment Notes Treatment Clinical Notes Jul, Contact with and (suspected) exposure to other viral communicable diseases (ICD-10 - Z20.828) Jul, Other Additional time spent conducting pre-visit phone call, screening for symptoms, instructions on social distancing, application and removal of PPE, and cleaning of examination room, equipment and supplies was preformed. Patient education given for testing methodology and results. Patient care instructions given in writting by [facility] Care At Home document. [employer] Other Evaluation + Plan note Future Appointments Appointment Date:05/29/2022 01:20:00 PM Scheduled Provider:DANIA VALDEZ PA-C Location:[facility] Appointment Type:URO Office Visit [facility] evaluation noteNo assessment information available [facility] Work Phone: Evaluation note* Diagnosis Onset Date Resolution Status Admit Date Bronchitis acute December 08, 2024 9:34am Eustachian tube dysfunction acute December 08, 2024 9:34am Gastroenteritis acute December 08, 2024 9:34am [facility] Work Phone: History general Narrative - Reported* Type Description Date Medical History concussion Medical History anxiety Medical History MANJULA (obstructive sleep apnea) Surgical History tonsillectomy and adenoidectomy Surgical History eyes [employer] Other History general Narrative - Reported* Type Description Date Medical History concussion Medical History anxiety Medical History MANJULA (obstructive sleep apnea) Surgical History tonsillectomy and adenoidectomy Surgical History eyes Surgical History PE tubes [facility] Other History general Narrative - Reported* Type Description Date Medical History concussion Medical History anxiety Medical History MANJULA (obstructive sleep apnea) Surgical History tonsillectomy and adenoidectomy Surgical History eyes Surgical History PE tubes Hospitalization History SEE SURGICAL HX [facility] Other Hospital course Narrative No data available for this section [facility] Hospital Discharge instructions No data available for this section [facility] [employer] progress note No data available for this section [facility] [employer] Summary Purpose Family History Relationship Condition Age at Onset Recorded Date/T marlon grandparent History of stroke Unknown Heart disease Unknown grandparent Heart disease Unknown mother Hypertension Unknown Advance Directives Advance Directive Response Recorded Date/ Time Advance Directives No September 3:46pm Chief Complaint and Reason for Visit Chief Complaint manjula-needs new suppli es Chief Complaint Admit Date Diarrhea/Congestion December 08, 2024 9:34am Reason for Visit Admit Date Bronchitis December 08, 2024 9:34am Eustachian tube dysfunction November 9:34am Gastroenteritis December 08, 2024 9:34am Additional Source Comments (unrecognized sect ion and content) No Status Records FoundNo Status Records FoundNo Status Records FoundNo Status Records Found INFORMATION SOURCE (unrecogn ized section and content) DATE CREATED AUTHOR 12/01/2018 [facility] DATE CREATED AUTHOR AUTHOR'S ORGANIZ ATION 08/28/2021 [facility] DATE CREATED AUTHOR AUTHOR'S ORGANIZ ATION 06/05/2022 [facility] DATE CREATED AUTHOR AUTHOR'S ORGANIZ ATION 09/10/2024 [facility] Care Team (unrecognized sect ion and content) Team Status: Inactive Member Role Status Dates Juliette Mauricio MD Primary Care Provider Active Caren Rosen NP Attending Provider Active Team Status: Active Member Role Status Dates Juliette Mauricio MD Primary Care Provider Active Team Status: Inactive Member Role Status Dates Juliette Mauricio MD Primary Care Provider Active Start: December 08, 2024 End: December 08, 2024 Dania Matthews APRN [employer] Attending Provider Active Start: November End: December 08, 2024 REASON FOR VISIT (unrecogniz ed section and content) #27 PLATA MALIBU, CONGESTION, COVID EXPOSURE, COVID Provider VisitCHEVY MALIBU, NASAL CONGESTION, RUNNY NOSE, X 1 DAYTAN MALIBU, CONGESTION, COUGH, H/A, FATIGUE, COVID EXPOSUREFOLLOW UPCHILLS COUGH CONGESTION EAR PAINRight ear pain, dizziness, previously diagnosed with vertigoVERTIGO Goals (unrecognized section and content) Goals may be documented in a n alternate section FOR RECORDS PERTAINING TO PATIENTS WHO ARE OR HAVE BEEN ENROLLED IN A CHEMICAL DEPENDENCY/SUBSTANCEABUSE PROGRAM, SOME INFORMATION MAY BE OMITTED. This clinical summary was aggregated from multiple sources. Caution should be exercised in using it in the provision of clinical care. This summary normalizes information from multiple sources, and as a consequence, information in this document may materially change the coding, format and clinical context of patient data. In addition, data may be omitted in some cases. CLINICAL DECISIONS SHOULD BE BASED ON THE PRIMARY CLINICAL RECORDS. [employer] provides no warranty or guarantee of the accuracy or completeness of information in this document.
[2025-04-29 03:10] VITALS: PULSE 112; TEMP 36.8; O2SAT 99; BMI 42.2
[2025-04-29 03:17] VITALS: BP 150/90
--- NOTE | 2025-04-29 03:35 | ED.BACK1 ---
HPI HPI - Back Pain/Injury General Chief Complaint: Back Pain/Injury Stated Complaint: BACK PAIN Time Seen by Provider: 04/29/25 03:25 Source: patient Mode of arrival: walk-in Limitations: no limitations History of Present Illness HPI Narrative: chronic lower back pain. Injured back at work over a year ago. 2 rounds of PT. Pain lower back that radiates into both thighs. States increased pain past 4-5 days. No new injuries. No fever . No loss of control of bowel or bladder. Has returned to work on restricted duty. No longer lifting but still standing on his feet all day Related Data Home Medications ?Medication ?Instructions ?Recorded ?Confirmed methocarbamol 750 mg tablet mg 04/29/25 Allergies Allergy/AdvReac Type Severity Reaction Status Date / Time No Known Drug Allergies Allergy Verified 04/13/24 01:05 Opioid HPI Opioid Management Most Recent Opioid Data: Last Pain Scale 9 Today, 03:52 Last MAR Pain Assessment Today, 03:52 Review of Systems ROS Status of ROS 10 or more systems reviewed and unremarkable except as noted in history and below PFSH PFSH Social History Smoking status: Current every day smoker Little interest or pleasure in doing things: not at all Feeling down, depressed, or hopeless: not at all Exam Constitutional Vital Signs, click to edit/add: Last Vital Signs Temp 98.3 F 04/29/25 03:10 Pulse 112 H 04/29/25 03:10 Resp 22 H 04/29/25 03:10 BP 150/90 H 04/29/25 03:17 Pulse Ox 99 04/29/25 03:10 O2 Del Method Room Air 04/29/25 03:10 Common normals: no apparent distress, average body habitus, oriented x3, no limitations, healthy appearing, alert and well nourished [facility] Common normals: normocephalic and head/scalp atraumatic Respiratory Common normals: normal respiratory effort, no retractions, no use of accessory muscles and clear to auscultation bilaterally Cardio Common normals: regular rate, regular rhythm, S1 normal heart sound and S2 normal heart sound GI Common normals: Normal to inspection, nondistended, normoactive bowel sounds present, soft to palpation and non-tender Back & Pelvis Back image (male):  1. tender Extremity Common normals: normal to inspection and full ROM Neuro Common normals: oriented x3, CN's II-XII intact bilaterally, moves all extremities, no focal motor deficits and gait normal Psych Appearance: grossly normal Course Vital Signs Vital signs: Vital Signs Temperature 98.3 F 04/29/25 03:10 Pulse Rate 112 H 04/29/25 03:10 Respiratory Rate 22 H 04/29/25 03:10 Pulse Oximetry 99 04/29/25 03:10 Oxygen Delivery Method Room Air 04/29/25 03:10 Temperature 98.3 F 04/29/25 03:10 Pulse Rate 112 H 04/29/25 03:10 Respiratory Rate 22 H 04/29/25 03:10 Blood Pressure 150/90 H 04/29/25 03:17 Pulse Oximetry 99 04/29/25 03:10 Oxygen Delivery Method Room Air 04/29/25 03:10 MDM - Back Pain/Injury MDM Narrative Medical decision making narrative: patient presents with acute on chronic lower back pain. MRI 05/2024 with L4-L5 broad based disc herniation and L5-S1 annular tear with small disc protrusion. He has chronic pain. He injured himself at work last year that initiated his pain. States he has been recommended for injection in his back but so far this has not been approved. He has been working with restrictions. Comes in now because of increasing pain over past 4-5 days. No loss of control of bowel or bladder. no fever. Has focal tenderness at L5. No findings of lower extremity weakness. Labs WNL including CRP. Xray L-spine without acute findings. Patient medicated in the department with cocktail of magnesium, solumedrol and fentanyl which provided some relief. States he has an appointment later today with his doctor. Prescription provided for percocet and prednisone Lab Data Labs: Lab Results 04/29/25 Range/Units 03:55 WBC 7.2 (4.0-11.0) 10^3/uL RBC 5.24 (4.70-6.10) 10^6/uL Hgb 14.5 (14.0-18.0) g/dL Hct 43.6 (42.0-54.0) % MCV 83.2 (80.0-94.0) fL MCH 27.7 (25.9-34.0) pg MCHC 33.3 (29.9-35.2) g/dL RDW 12.6 (11.0-15.0) % Plt Count 276 (150-450) 10^3/uL MPV 10.6 (9.5-13.5) fL Neut % (Auto) 66.0 (43.0-75.0) % Lymph % (Auto) 23.1 (20.5-60.0) % [place] % (Auto) 7.7 (1.7-12.0) % Eos % (Auto) 2.1 (0.9-7.0) % Baso % (Auto) 0.3 (0.2-2.0) % Neut # (Auto) 4.8 (1.4-6.5) 10^3/uL Lymph # (Auto) 1.7 (1.2-3.8) 10^3/uL [place] # (Auto) 0.6 (0.3-0.8) 10^3/uL Eos # (Auto) 0.2 (0.0-0.7) 10^3/uL Baso # (Auto) 0.0 (0.0-0.1) 10^3/uL Abs Immat Gran (auto) 0.06 H (0.00-0.03) 10^3/uL Imm/Tot Granulo (auto) 0.8 H (0.0-0.5) % Sodium 139 (136-145) mmol/L Potassium 3.9 (3.5-5.1) mmol/L Chloride 103 (98-107) mmol/L Carbon Dioxide 28.3 (21.0-32.0) mmol/L Anion Gap 11.6 BUN 16.0 (7.0-18.0) mg/dL Creatinine 0.98 (0.70-1.30) mg/dL Est GFR ( Amer) >60 (>=60 mL/min/1.73m^2) Est GFR (Non-Af Amer) >60 (>=60 mL/min/1.73m^2) BUN/Creatinine Ratio 16.3 Glucose 109 H (74-106) mg/dL Calcium 9.1 (8.5-10.1) mg/dL C-Reactive Protein 0.50 (<=0.50) mg/dL Discharge Plan Discharge Chief Complaint: Back Pain/Injury Clinical Impression: Lower back pain Patient Disposition: Home, Self-Care Prescriptions / Home Meds: No Action methocarbamol 750 mg tablet Print Language: Malaysian Instructions: Acute Low Back Pain (ED) Additional Instructions: follow up with your doctor today as planned Referrals: Juliette Reaves MD [Primary Care Provider, Family Practice] - 1 week
--- NOTE | 2025-04-29 03:43 | XR_ITS ---
[place] [id number] Patient Name: SORAIDA RAPHAEL MRN: [id number] date: 1990 Sex: M Assigned Patient Location: ER Current Patient Location: Accession/Order Number: [id number] Exam Date: 04/29/2025 08:30 Report Date: 04/29/2025 08:31 At the request of: TATIANA DANIEL MD Procedure: XR lumbar spine 2-3V 3 views lumbar spine INDICATION: Back pain COMPARISON: MRI performed 05/25/2024 FINDINGS: Straightening. Lumbar vertebral heights maintained. Mild degenerative changes at L5-S1 disc space narrowing and facet arthropathy. XR/XR lumbar spine 2-3V IMPRESSION: Degenerative changes L5-S1. Negative acute osseous abnormality. Impression dictated by: Ishmael Manzanares M.D. 04/29/2025 8:31 AM Dictation Location: [place] [id number] Electronically authenticated by: [id number] Y Date: 04/29/2025 08:31
[2025-04-29] MEDS: METHYLPREDNISOLONE SOD SUCC PF 125 MG/2 ML VIAL IVP (03:52)
[2025-04-29] MEDS: KETOROLAC TROMETHAMINE 30 MG/ML VIAL IVP (03:52)
[2025-04-29] MEDS: MAGNESIUM SULFATE IN WATER 2 GM/50 ML PREMIX IV (03:52)
[2025-04-29 04:10] LABS: Hematocrit 43.6 % (42.0-54.0); Hemoglobin 14.5 g/dL (14.0-18.0); Immature Granulocytes Abs Auto 0.06 10^3/uL (0.00-0.03); Immature Granulocytes Pct Auto 0.8 % (0.0-0.5); Lymphocytes Absolute Auto 1.7 10^3/uL (1.2-3.8); Mean Corpuscular HGB Conc 33.3 g/dL (29.9-35.2); Mean Corpuscular Hemoglobin 27.7 pg (25.9-34.0); Mean Corpuscular Volume 83.2 fL (80.0-94.0); Platelet Count 276 10^3/uL (150-450); Red Blood Count 5.24 10^6/uL (4.70-6.10); White Blood Count 7.2 10^3/uL (4.0-11.0)
[2025-04-29 04:18] LABS: Anion Gap 11.6; Blood Urea Nitrogen 16.0 mg/dL (7.0-18.0); Calcium 9.1 mg/dL (8.5-10.1); Carbon Dioxide 28.3 mmol/L (21.0-32.0); Chloride 103 mmol/L (98-107); Estimated GFR (African America >60 (>=60 mL/min/1.73m^2); Estimated GFR (Non-African Ame >60 (>=60 mL/min/1.73m^2); Glucose 109 mg/dL (74-106); Potassium 3.9 mmol/L (3.5-5.1); Sodium 139 mmol/L (136-145)
[2025-04-29] MEDS: FENTANYL CITRATE/PF 100 MCG/2 ML VIAL 50 MCG IV ×2 (05:04→06:48)
[2025-04-29 06:59] VITALS: BP 117/86; PULSE 78; O2SAT 99
[2025-04-29 07:07] VITALS: O2SAT 98
== END 2025-04-29 07:08 | disposition home or self-care (01) ==
PROVIDERS: Emergency Provider Internal Medicine; PCP Family Medicine
DX: M54.50 Low back pain, unspecified (principal); F17.200 Nicotine dependence, unspecified, uncomplicated
CPT/HCPCS: 36415; 72100; 80048; 85025; 86140; 96365; 96375; 96376; 99284; J1885; J2919; J3010; J3475